=== PATIENT | male | born 1955 | race Caucasian/White ===

== ENCOUNTER → 2020-04-20 | Outpatient (CLI) | payer MEDICARE, SELFPAY ==
--- NOTE | 2020-04-20 10:34 | RAD_ITS ---
STUDY: X-RAY CHEST REASON FOR EXAM: Male, 64 years old. Weight loss TECHNIQUE: 2 PA and 2 lateral views COMPARISON: None. FINDINGS: Lungs are hyperexpanded with chronic interstitial changes, but no superimposed acute pulmonary process. There is no demonstrated pleural abnormality. Normal size heart. Normal mediastinum and brenda. Normal visualized pulmonary arteries. Normal visualized aortic arch and descending thoracic aorta. There are diffuse degenerative changes of the visualized thoracic spine. Normal visualized ribs, clavicles, and shoulders. There is no demonstrated abnormality of the visualized soft tissue structures of the upper abdomen. RAD/Chest PA and Lateral IMPRESSION: Hyperexpanded lungs without a superimposed acute pulmonary process Electronically Signed: Rogelio Holguin MD at 11:13 EDT , Service support ,
[2020-04-20 12:43] LABS: Absolute Lymphocyte Count 1.38 X10^3/uL (0.83-4.51); Basophil# 0.06 X10^3/uL; Eosinophil# 0.11 X10^3/uL; Eosinophils% 1.8 % (0-5); Hematocrit 51.9 % (40-54); Hemoglobin 16.7 g/dL (13.0-16.5); Lymphocyte # 1.38 X10^3/ul (4.0); Lymphocyte % 22.8 % (19-41); Mean Corp Hgb Conc 32.2 g/dL (32-36); Mean Corpuscular Volume 99.4 fL (80-94); Mean Platelet Vol. 11.9 fl (6.2-12.0); Monocyte# 0.45 X10^3/uL; Monocyte% 7.5 % (0-10); NRBC Flagged by Analyzer 0 % (0-5); Neutrophil # 4.02 X10^3/uL (2.7-7.7); Neutrophil % 66.6 % (47-70); Platelet Count 195 K/mm3 (150-450); RBC Distribution Width CV 13.4 % (11.6-14.6); RBC Distribution Width SD 49.3 fl (35.1-43.9); Red Blood Count 5.22 M/mm3 (4.6-6.2)
[2020-04-20 12:56] LABS: Erythrocyte Sedimentation Rate 4 mm/hr (0-20)
[2020-04-20 13:13] LABS: ALB/GLOB Ratio 0.9 RATIO (0.9-2.4); AST(SGOT) 14 U/L (15-37); Alanine Aminotransfer ALT/SGPT 22 U/L (16-61); Albumin, Serum 3.9 g/dL (3.2-5.0); Alkaline Phosphatase 59 U/L (45-117); Anion Gap 5 (5-15); BUN 16 mg/dL (7-18); BUN/Creat Ratio 16.3 RATIO (10-20); Calcium,Total 9.6 mg/dL (8.5-10.1); Chloride 100 mmol/L (98-107); Creatinine, Serum 0.98 mg/dL (0.70-1.30); EST Glomerular Filtration Rate 81 mL/min (>60); Est Glom Filt Rate - Afr Amer 98 mL/min (>60); Globulin 4.3 g/dL (2.2-4.2); Glucose 106 mg/dL (74-106); Protein, Total 8.2 g/dL (6.4-8.2); Sodium Level 136 mmol/L (136-145); Thyroid Stim Hormone (TSH) 0.73 uIU/mL (0.358-3.74)
== END | disposition home or self-care (01) ==
PROVIDERS: PCP Family Medicine; Referring Provider Family Medicine; Visit Provider Family Medicine
DX: R63.4 Abnormal weight loss (principal)
CPT/HCPCS: 36415; 71046; 80053; 84443; 85025; 85652

== ENCOUNTER → 2020-04-27 | Outpatient (CLI) | payer MEDICARE, SELFPAY ==
--- NOTE | 2020-04-27 07:49 | CT_ITS ---
STUDY: CT ABDOMEN WITH CONTRAST REASON FOR EXAM: Male, 64 years old. WEIGHT LOSS, HERNIA REPAIR RADIATION DOSAGE (If Supplied By Facility): CTDIvol = ( 12.61 ) mGy, DLP = ( 304.03 ) mGycm TECHNIQUE: Transaxial images were obtained post I.V. administration of Oral and amp;amp; IV Readi-CAT and amp;amp; 100mL Isovue-300, and with oral contrast. Sagittal and coronal images were reconstructed. Individualized dose optimization techniques were used for this CT. COMPARISON: None. FINDINGS: The visualized lung bases are unremarkable. The visualized portions of the heart are within normal limits. Normal liver. Normal gallbladder and extrahepatic biliary system. Normal spleen. Normal pancreas. Normal bilateral adrenal glands. Normal right kidney. Normal left kidney. Normal visualized stomach. Normal small intestine. There are scattered colonic diverticula consistent with diverticulosis. The appendix is visualized and appears normal. There is scattered atherosclerotic calcification of the abdominal aorta, without a demonstrated aneurysm. Normal inferior vena cava. Normal retroperitoneum. Normal abdominal wall. Minimal anterior listhesis of L4 on L5 without spondylolysis most likely secondary to facet joint osteoarthritis. Schmorl''s node involving the superior endplate of the L2 vertebrae. CT/Abdomen WITH IV Contrast IMPRESSION: No acute abnormality is seen. Electronically Signed: Scotty Levin, at 15:29 EDT , Service support ,
== END | disposition home or self-care (01) ==
LOC: CT 07:45
PROVIDERS: PCP Family Medicine; Referring Provider Family Medicine; Visit Provider Family Medicine
DX: R63.4 Abnormal weight loss (principal)
CPT/HCPCS: 74160; Q9967

== ENCOUNTER → 2020-06-02 12:06 | Outpatient (CLI) | payer MEDICARE, SELFPAY ==
[2016-02-27 21:18] VITALS: BMI 23.3
[2020-06-02 15:43] LABS: CRP < 2.90 mg/L (0.0-3.0)
[2020-06-04 16:08] LABS: Endomysial Antibody IgA Negative (Negative)
[2020-06-04 16:47] LABS: Immunoglobulin A 351 mg/dL (61-437); t-Transglutaminase IgA <2 U/mL (0-3)
== END ==
PROVIDERS: PCP Family Medicine; Referring Provider Internal Medicine Gastroenterology; Visit Provider Internal Medicine Gastroenterology
DX: R10.9 Unspecified abdominal pain (principal); R63.4 Abnormal weight loss
CPT/HCPCS: 36415; 82784; 83516; 86140; 86255

== ENCOUNTER → 2020-06-18 | Outpatient (CLI) | payer MEDICARE, SELFPAY ==
[2016-02-27 21:18] VITALS: BMI 23.3
--- NOTE | 2020-06-18 | IMM_PTH ---
PATIENT: AZIZA RODRIGUEZ LOC: [facility] U#:[id number] AGE/SX: 65/M ROOM: RE06/18/[address]: Dr. Fausto Neves MD : 1955 BED: DIS: 06/18/2020 SPEC #: [id number] RECD: 06/22/20 12:55 STATUS: VEROAN RERosario #: [id number] SANTIAGO: 06/18/20 00:[address]: Fausto Neves DEPT: IMMUNOHISTOCHEMISTRY RECD BY: Stacy Bueno ENTERED: 06/22/20 12:56 SP TYPE: IMMUNO OTHR DR: Dr. Milena Curry MD Tissues: B - Stomach, NOS Procedures: H Pylori (initial) PHYSICIAN & INSTITUTION [place] [id number] SPECIMEN INFORMATION: Tissue Source: B - Gastric antrum/body, biopsy Clinical Info: Weight loss Specimen Number: [id number] CPT code: 92389 METHODOLOGY: Deparaffinized sections of prefer/formalin-fixed tissue or PAP/DQ stained slides are incubated with monoclonal/polyclonal antibodies/oligonucleotide probes. Localization is made via biotin free immunoperoxidase method. Appropriate controls are performed and reacted as expected. Results on target cell population are indicated in the following table: RESULTS: ANTIBODY / CLONE RESULT Block B H Pylori (polyclonal) negative These tests were developed and their performance characteristics determined by [facility]. They may not have been cleared or approved by the U.S. Food and Drug Administration. The FDA has determined that such clearance or approval is not necessary. The above immunohistochemical/dualISH markers are ordered and reviewed by the Pathologist. INTERPRETATION: B. Gastric antrum/body, biopsy: Negative for Helicobacter pylori organisms. AM:taty 06/23/20
--- NOTE | 2020-06-18 12:34 | EGD_PTH ---
PATIENT: AZIZA RODRIGUEZ LOC: [facility] U#:[id number] AGE/SX: 65/M ROOM: RE06/18/[address]: Dr. Fausto Neves MD : 1955 BED: DIS: 06/18/2020 SPEC #: [id number] RECD: 06/20/20 15:05 STATUS: VERONA DANA #: [id number] SANTIAGO: 06/18/20 12:[address]: Fausto Neves DEPT: SURGICAL PATHOLOGY RECD BY: Moises Clark ENTERED: 06/21/20 07:46 SP TYPE: EGD BIOPSY MAIKEL DR: Dr. Milena Curry MD [facility] Tissues: A - Duodenum, NOS B - Gastric mucous membrane Procedures: Surgery Specimen Level IV HEADER OPERATION: EGD with biopsy PRE-OP DIAGNOSIS: Weight loss R63.4 TISSUE SUBMITTED: A - Garcia-duodenal biopsies, rule out celiac, Whipple's enteritis, B - Gastric biopsy, antrum/body, rule out gastritis MICROSCOPIC DIAGNOSIS A. Garcia-duodenal biopsies: Consistent with benign Matteo's gland hyperplasia. No evidence of enteritis. B. Gastric antrum/body, biopsy: Mild chronic gastritis. See comment. AM:taty 06/22/20 COMMENT B. The results of immunohistochemistry for Helicobacter pylori will be reported separately ([id number]). MICROSCOPIC DESCRIPTION Slides are reviewed. GROSS DESCRIPTION A - Received in fixative is one container labeled with the patient's name and designated duodenal biopsy. The specimen consists of one irregular fragment of light acosta soft tissue that measures 0.4 x 0.3 x 0.1 cm. The specimen is totally submitted in one cassette. B - Received in fixative is one container labeled with the patient's name and designated gastric antrum/body. The specimen consists of multiple irregular fragments of light acosta soft tissue that in aggregate measure 0.5 x 0.5 x 0.1 cm. The specimen is totally submitted in one cassette. / SJ:taty 06/21/20 TC:3 CPT: 17975 x2
== END | disposition home or self-care (01) ==
LOC: LABSPEC 15:20
PROVIDERS: PCP Family Medicine; Referring Provider Internal Medicine Gastroenterology; Visit Provider Internal Medicine Gastroenterology
DX: R63.4 Abnormal weight loss (principal)
CPT/HCPCS: 88305; 88342

== ENCOUNTER → 2020-10-20 09:19 | Outpatient (CLI) | payer MEDICARE, SELFPAY ==
[2020-10-11 10:17] VITALS: BMI 19.1
--- NOTE | 2020-10-20 15:10 | PFTCOMP ---
COMPLETE PULMONARY FUNCTION TEST INTERPRETATION Brief HPI: Patient is a 65 year old male, currently under the care of myself, who presents to [facility] for complete pulmonary function tests secondary to diagnosis of dyspnea. Respiratory therapist reports good effort and reproducible results. Interpretation: Forced expiration spirometry shows a very severe large airways obstructive ventilatory defect with an FEV1 of 35% predicted. There is a significant bronchodilator response in FVC by strict ATS criteria. Spirograms are of good quality and plateau slowly, indicating slowly emptying areas of the lungs. The respiratory flow volume loop shows decreased expiratory flow rates at all lung volumes consistent with airway obstruction. Lung volumes by body plethysmography show an elevated total lung capacity at 10.42 L, 153% predicted. FRC and RV are elevated out of proportion. Lung volume measurements are consistent with hyperinflation and air-trapping. Diffusion capacity by carbon monoxide is decreased at 68% predicted. The airway resistance is elevated. No previous pulmonary function tests were available for review. Impression: Partially reversible very severe large airways obstructive ventilatory defect resulting in air trapping with hyperinflation and a pattern consistent with severe COPD.
== END ==
PROVIDERS: PCP Family Medicine; Referring Provider Internal Medicine Critical Care Medicine; Visit Provider Internal Medicine Critical Care Medicine
DX: R06.02 Shortness of breath (principal)
CPT/HCPCS: 94060; 94726; 94729

== ENCOUNTER → 2020-10-28 10:19 | Outpatient (CLI) | payer MEDICARE, SELFPAY ==
[2020-10-11 10:17] VITALS: BMI 19.1
== END ==
PROVIDERS: PCP Family Medicine; Referring Provider Internal Medicine Critical Care Medicine; Visit Provider Internal Medicine Critical Care Medicine
DX: R06.02 Shortness of breath (principal)
CPT/HCPCS: 94762

== ENCOUNTER → 2020-11-10 12:08 | Outpatient (CLI) | payer MEDICARE, SELFPAY ==
[2020-10-11 10:17] VITALS: BMI 19.1
[2020-11-10 12:30] VITALS: PULSE 103; PULSE 104; PULSE 105; PULSE 110; PULSE 97; PULSE 99; O2SAT 90; O2SAT 91; O2SAT 92; O2SAT 93; O2SAT 94
--- NOTE | 2020-11-12 08:06 | PCM.PSN.6M ---
PSN 6 Minute Walk Test - 6 Minute Walk Test 6 Minute Walk Test: 6 Minute Walk Test PSN:6-Minute Walk Test Start: 11/10/20 12:50 Freq: Status: Active Protocol: RESP.6MINW Document 11/10/20 12:30 EW (Rec: 11/10/20 12:54 EW [id number]) 6 Minute Walk Test Date Performed 11/10/20 Time Performed 12:30 Height 5 ft 11 in Weight: 145 lb Weight in Pounds 145.[address]: Patrick Levin Assistive device used: None Pre-test Oxygen Delivery Method Room Air Pulse Ox (%) 93 Pulse Rate (60-100 beats/min) 97 Dyspnea Ady Scale (0-10) 0 Exertion Ady Scale (6-20) 6 1st minute Oxygen Delivery Method Room Air Pulse Ox (%) 92 Pulse Rate (60-100 beats/min) 103 H 2nd minute Oxygen Delivery Method Room Air Pulse Ox (%) 90 Pulse Rate (60-100 beats/min) 110 H 3rd minute Oxygen Delivery Method Room Air Pulse Ox (%) 90 Pulse Rate (60-100 beats/min) 104 H 4th minute Oxygen Delivery Method Room Air Pulse Ox (%) 91 Pulse Rate (60-100 beats/min) 99 5th minute Oxygen Delivery Method Room Air Pulse Ox (%) 90 Pulse Rate (60-100 beats/min) 105 H 6th minute Oxygen Delivery Method Room Air Pulse Ox (%) 90 Pulse Rate (60-100 beats/min) 105 H Post-test Oxygen Delivery Method Room Air Pulse Ox (%) 94 Pulse Rate (60-100 beats/min) 104 H Dyspnea Ady Scale (0-10) 2 Exertion Ady Scale (6-20) 11 Full Laps Walked 15 Partial Lap, Number of Tiles Walked 0 Total Distance Walked (ft) 885 - Interpretation Interpretation: The patient ambulated 885 feet over the course of 6 minutes beginning on room air without assistive devices or breaks. Pretesting oxygen saturation was noted to be 93% on room air. With ambulation, the juliane oxygen saturation was 90%. There was no significant exertional oxygen desaturation. - Recommendations Recommendations: There is no indication for the use of supplemental oxygen at this time.
== END ==
PROVIDERS: PCP Family Medicine; Referring Provider Internal Medicine Critical Care Medicine; Visit Provider Internal Medicine Critical Care Medicine
DX: R06.02 Shortness of breath (principal)
CPT/HCPCS: 94618

== ENCOUNTER → 2021-05-14 08:46 | Outpatient (CLI) | payer MEDICARE, SELFPAY ==
[2021-05-11 07:20] VITALS: BMI 21.4
--- NOTE | 2021-05-14 08:46 | CT_ITS ---
HISTORY: Screening exam. History of weight loss and COPD. EXAMINATION: CT Low Dose CT Chest for Lung Cancer Screening TECHNIQUE: Helically acquired images were obtained of the chest. Low-dose unenhanced chest CT imaging technique performed. Sagittal and coronal reformats reviewed. A radiation dose optimization technique was used for this scan. IV Contrast dosage and agent: None. COMPARISON: Contrast-enhanced CT abdomen and pelvis from 04/27/20 and 2 view chest x-ray from 04/20/20. FINDINGS: Hyperexpanded lungs with centrilobular and paraseptal emphysematous changes. Small benign calcified 8 mm nodule and separate tiny calcified granuloma within anterior left upper lobe. Noncalcified 7 mm nodule within medial right lower lobe abutting pleural surface. 4 mm noncalcified nodule within lateral segment right middle lobe. 4 mm subpleural nodule within anterolateral right lower lobe. 4 mm peripheral noncalcified nodule within lateral left lower lobe. There are several other scattered, punctate 2-3 mm nodules within bilateral lungs. No pulmonary edema, confluent airspace consolidation or discrete mass. No pneumothorax or pleural effusion. No pathologically enlarged mediastinal or hilar lymph nodes. Heart normal size. Mild atherosclerosis with no thoracic aortic aneurysm. No significant pericardial effusion. No acute findings within the imaged upper abdomen. No acute fracture or suspicious osseous lesion. CT/Low Dose CT Lung Screening IMPRESSION: Pulmonary emphysema with several noncalcified lung nodules and couple of benign calcified nodules. All nodules are possibly benign postinfectious etiology but dominant, noncalcified nodules (largest measuring 7 mm within right lower lobe) warrant follow-up imaging, as small pulmonary neoplasm not excluded. Per Antoni Society guidelines (see below), recommend follow-up imaging in 3-6 months, then again at 18-24 months. Updated 2017 Fleischner Society guidelines for follow-up and management of pulmonary nodules: Single nodule: In a low-risk patient: no routine follow up. In a high-risk patient: optional follow-up CT at 12 months Nodule size = 6-8 mm In a low-risk patient: CT at 6-12 months, then consider CT at 18-24 months In a high-risk patient: CT at 6-12 months, then CT at 18-24 months Nodule size > 8 mm All: consider CT at 3 months, PET/CT, or biopsy. Multiple nodules In a low-risk patient: no routine follow up. In a high-risk patient: optional follow-up CT at 12 months Nodule size = 6-8 mm In a low-risk patient: CT at 3-6 months, then, consider CT at 18-24 months. In a high-risk patient: CT at 3-6 months, then CT at 18-24 months . Nodule size > 8 mm In a low-risk patient: CT at 3-6 months, then, consider CT at 18-24 months. In a high-risk patient: CT at 3-6 months, then CT at 18-24 months . Low risk patients include individuals with minimal or absent history of smoking and other known risk factors. High risk patients include individuals with a history of smoking or other known risk factors. Individualized dose optimization techniques were used for this CT. at 0435 Reported and signed by: Dustin Magana MD Electronically Signed: Dustin Magana MD at 4:34 EDT Tel , Service support ,
== END ==
PROVIDERS: PCP Family Medicine; Referring Provider Internal Medicine Critical Care Medicine; Visit Provider Internal Medicine Critical Care Medicine
DX: F17.210 Nicotine dependence, cigarettes, uncomplicated (principal); Z12.2 Encounter for screening for malignant neoplasm of respiratory organs
CPT/HCPCS: 71271

== ENCOUNTER 2021-12-26 06:48 | Outpatient (CLI) | payer MEDICARE, SELFPAY ==
--- NOTE | 2021-12-26 10:51 | PFTCOMP_ITS ---
COMPLETE PULMONARY FUNCTION TEST INTERPRETATION Brief HPI: Patient is a 66 year old male, currently under the care of myself, who presents to [facility] for complete pulmonary function tests secondary to diagnosis of COPD/asthma overlap syndrome. Respiratory therapist reports good effort and reproducible results. Interpretation: Forced expiration spirometry shows a very severe large airways obstructive ventilatory defect with an FEV1 of 32% predicted. There is a significant bronchodilator response in FVC by strict ATS criteria. Spirograms are of good quality and plateau slowly, indicating slowly emptying areas of the lungs. The respiratory flow volume loop shows decreased expiratory flow rates at all lung volumes consistent with airway obstruction. Lung volumes by body plethysmography show a normal total lung capacity at 7.41 L, 106% predicted. FRC and RV are elevated out of proportion. Lung volume measurements are consistent with air-trapping. Diffusion capacity by carbon monoxide is decreased at 47% predicted. The airway resistance is elevated. Compared to previous pulmonary function tests from 10/20/2020, there has been significant worsening in lung volumes and DLCO. Impression: Partially reversible very severe large airways obstructive ventilatory defect, resulting in air trapping, and a significant reduction in diffusion capacity that appears to have worsened over the last 2 years.
== END 2021-12-26 23:59 | disposition home or self-care (01) ==
LOC: PSN 06:51
PROVIDERS: PCP Family Medicine; Referring Provider Nurse Practitioner Acute Care; Visit Provider Nurse Practitioner Acute Care
DX: J44.9 Chronic obstructive pulmonary disease, unspecified (principal)
CPT/HCPCS: 94060; 94726; 94729

== ENCOUNTER 2021-12-30 12:20 | Outpatient (CLI) | payer MEDICARE, SELFPAY ==
[2021-12-30 12:41] VITALS: PULSE 104; PULSE 105; PULSE 107; PULSE 108; PULSE 109; PULSE 93; O2SAT 91; O2SAT 92; O2SAT 93; O2SAT 94; O2SAT 95
--- NOTE | 2021-12-31 05:46 | PCM.PSN.6M ---
PSN 6 Minute Walk Test 6 Minute Walk Test 6 Minute Walk Test: 6 Minute Walk Test PSN:6-Minute Walk Test Start: 12/30/21 12:41 Freq: Status: Active Protocol: RESP.6MINW Document 12/30/21 12:41 CHARANJIT (Rec: 12/30/21 12:43 CHARANJIT [id number]) 6 Minute Walk Test Date Performed 12/30/21 Time Performed 12:30 Height 6 ft Weight: 72.575 kg Weight in Pounds 160.[address]: Munira Zimmer [employer] Assistive device used: None Pre-test Oxygen Delivery Method Room Air Pulse Ox (%) 94 Pulse Rate (60-100 beats/min) 104 H Dyspnea Ady Scale (0-10) 0 Exertion Ady Scale (6-20) 6 1st minute Oxygen Delivery Method Room Air Pulse Ox (%) 95 Pulse Rate (60-100 beats/min) 107 H 2nd minute Oxygen Delivery Method Room Air Pulse Ox (%) 92 Pulse Rate (60-100 beats/min) 107 H 3rd minute Oxygen Delivery Method Room Air Pulse Ox (%) 92 Pulse Rate (60-100 beats/min) 107 H 4th minute Oxygen Delivery Method Room Air Pulse Ox (%) 92 Pulse Rate (60-100 beats/min) 105 H 5th minute Oxygen Delivery Method Room Air Pulse Ox (%) 91 Pulse Rate (60-100 beats/min) 108 H 6th minute Oxygen Delivery Method Room Air Pulse Ox (%) 93 Pulse Rate (60-100 beats/min) 109 H Dyspnea Ady Scale (0-10) 3 Exertion Ady Scale (6-20) 12 Post-test Oxygen Delivery Method Room Air Pulse Ox (%) 95 Pulse Rate (60-100 beats/min) 93 Full Laps Walked 20 Partial Lap, Number of Tiles Walked 10 Total Distance Walked (ft) 1190 Interpretation Interpretation: Patient was able to ambulate 1190 feet over the course of 6 minutes on room air with no assistive devices or breaks. The patient did experience significant desaturation from a baseline of 94% to as low as 91%. Patient also had persistent tachycardia throughout testing with a peak heart rate of 109 bpm. These findings are consistent with a respiratory limitation exercise tolerance. Recommendations Recommendations: No supplemental oxygen is indicated at this time. However, patient will need to be followed closely given level of desaturation.
== END 2021-12-30 23:59 | disposition home or self-care (01) ==
LOC: PSN 12:21
PROVIDERS: PCP Family Medicine; Referring Provider Nurse Practitioner Acute Care; Visit Provider Nurse Practitioner Acute Care
DX: J44.9 Chronic obstructive pulmonary disease, unspecified (principal)
CPT/HCPCS: 94618

== ENCOUNTER → 2022-05-29 | Outpatient (CLI) | payer MEDICARE, SELFPAY ==
--- NOTE | 2022-05-29 08:36 | CT_ITS ---
STUDY: LOW DOSE CT LUNG CANCER SCREENING REASON FOR EXAM: Male, 66 years old. 1 pack per day smoker x40 years, current smoker RADIATION DOSAGE (If Supplied By Facility): CTDIvol = ( 3.02 ) mGy, DLP = ( 124.55 ) mGycm TECHNIQUE: No contrast was administered. Low dose technique was utilized (average mAS-38 and kVp 120). 1.25 mm axial source images with a slice interval of 1.25-mm were reconstructed in lung windows. 2.5 mm axial source images with a slice interval of 2.5-mm were reconstructed in lung windows. 5.0 mm axial source images with a slice interval of 5.0-mm were reconstructed in soft tissue windows. COMPARISON: 05/14/2021 NODULES: Lung windows show significant and essentially unchanged emphysematous changes in both lung quiroz, both centrilobular and paraseptal. Stable nonspecific pleural thickening in both apices in both hemithoraces. Stable calcified granulomas in the upper lobes. There is a new suspicious spiculated 1.2 cm noncalcified nodule in the lateral left upper lobe on axial image 113. This needs further evaluation with biopsy or PET/CT study. There is also some concerning new architectural distortion in the right upper lobe on axial image 65 but there is no discrete nodule identified. No organized infiltrate, stable noncalcified nodules in the right lower lobe on axial image 170 measuring 3 and 5 mm. Soft tissue windows show normal-appearing thyroid gland. No suspicious adenopathy. There are calcified coronary vessels. No pleural or pericardial effusions. Bony structures show degenerative change, Limited cuts through the upper abdomen do not show a suspicious abnormality CT/Low Dose CT Lung Screening IMPRESSION: Lung-RADS category 4B - Chest CT with or without contrast, PET/CT and/or tissue sampling can be obtained depending on the probability of malignancy and comorbidities. IMPORTANT NOTES FOR USE: ACR Lung-RADS Version 1.1 Assessment Categories Release Date: 2018 Category: Coded 0-4 bases on nodule(s) with highest degree of suspicion. Negative screen is defined as categories 1 and 2; a positive screen is defined as categories 3 and 4. Category 3 and 4A nodules that are unchanged on interval CT should be coded as category 2, and individuals returned to screening in 12 months. Category 4X: Category 3 or 4 nodules with additional imaging findings that increase the suspicion of lung cancer, such as spiculation, GGN that doubles in size in 1 year, enlarged lymph notes, etc. Category Modifiers: S (significant finding unrelated to lung cancer) Electronically Signed: Rogelio Holguin MD at 11:05 EDT ,
== END | disposition home or self-care (01) ==
LOC: CT 08:05
PROVIDERS: PCP Family Medicine; Referring Provider Internal Medicine; Visit Provider Nurse Practitioner Acute Care
DX: Z87.891 Personal history of nicotine dependence (principal)
CPT/HCPCS: 71271

== ENCOUNTER → 2022-08-30 | Outpatient (CLI) | payer MEDICARE, SELFPAY ==
--- NOTE | 2022-08-30 08:19 | CT_ITS ---
STUDY: CT CHEST WITHOUT CONTRAST REASON FOR EXAM: Male, 67 years old. Follow lung mass RADIATION DOSAGE (If Supplied By Facility): CTDIvol = ( 8.42 ) mGy, DLP = ( 372.53 ) mGycm TECHNIQUE: Transaxial imaging was performed without the administration of intravenous contrast material. Multiplanar coronal and sagittal images were reformatted. Individualized dose optimization techniques were used for this CT. COMPARISON: Comparison is made with prior study dated 05/29/2022. FINDINGS: CHEST Calcified granuloma in the left upper lobe. Emphysematous changes with centrilobular emphysema in the upper lobes. The previously seen nodular density in the peripheral lateral aspect of the left upper lobe has decreased in size. It presently measures 7.8 mm. There is no demonstrated pleural abnormality. There are calcifications of the coronary arteries. Normal mediastinum. Calcified left hilar lymph nodes. Normal unenhanced pulmonary arteries. There is atherosclerotic calcification of the aortic arch with tortuosity and elongation of the aortic arch and descending thoracic aorta. There are multi-level degenerative changes of the thoracic spine. Calcified splenic granulomas. CT/Chest without Contrast IMPRESSION: Interval decrease in size of the previously seen nodular density in the posterior aspect of the left upper lobe. It presently measures 7.8 mm. The remainder of the examination is unchanged. Electronically Signed: Scotty Levin MD at 14:03 EDT ,
== END | disposition home or self-care (01) ==
PROVIDERS: PCP Family Medicine; Referring Provider Nurse Practitioner Acute Care; Visit Provider Nurse Practitioner Acute Care
DX: R91.8 Other nonspecific abnormal finding of lung field (principal)
CPT/HCPCS: 71250

== ENCOUNTER → 2023-03-12 | Outpatient (CLI) | payer MEDICARE, SELFPAY ==
--- NOTE | 2023-03-12 09:54 | RAD_ITS ---
INDICATION: COPD EXAMINATION/TECHNIQUE: X-RAY - XR Chest 2 Views COMPARISON: April 20, 2020. FINDINGS: LINES/DEVICES: None. LUNGS: Moderate over aeration consistent with COPD. No consolidation, edema or effusion. No pneumothorax. MEDIASTINUM AND CARDIOVASCULAR STRUCTURES: Cardiac silhouette not enlarged. Central airways and mediastinal contour are unremarkable. BONES AND SOFT TISSUES: Unremarkable. Stable exam. RAD/Chest PA and Lateral IMPRESSION: Moderate COPD. Electronically Signed: Dustin Saba MD, LUIS ALBERTO at 18:44 EDT ,
== END | disposition home or self-care (01) ==
LOC: MTRAD 09:52
PROVIDERS: PCP Family Medicine; Referring Provider Family Medicine; Visit Provider Family Medicine
DX: J44.9 Chronic obstructive pulmonary disease, unspecified (principal)
CPT/HCPCS: 71046

== ENCOUNTER 2024-12-05 10:11 | Outpatient (CLI) | payer MEDICARE, SELFPAY ==
[2024-12-05 12:41] LABS: Anion Gap 5 (5-15); BUN 14 mg/dL (7-18); BUN/Creat Ratio 13.2 RATIO (10-20); Calcium,Total 9.5 mg/dL (8.5-10.1); Chloride 102 mmol/L (98-107); Cholesterol 208 mg/dL (200); Creatinine, Serum 1.06 mg/dL (0.70-1.30); EST Glomerular Filtration Rate 73 mL/min (>60); Est Glom Filt Rate - Afr Amer 89 mL/min (>60); Glucose 102 mg/dL (74-106); High Density Lipoprotein 57 mg/dL; Potassium 4.6 mmol/L (3.5-5.1); Sodium Level 137 mmol/L (136-145); Triglycerides 79 mg/dL; Very Low Density Lipoprotein 16 mg/dL (5-40)
== END 2024-12-05 23:59 | disposition home or self-care (01) ==
LOC: MFPLAB 10:12
PROVIDERS: PCP Family Medicine; Referring Provider Family Medicine; Visit Provider Family Medicine
DX: Z13.1 Encounter for screening for diabetes mellitus (principal); Z13.220 Encounter for screening for lipoid disorders; E78.00 Pure hypercholesterolemia, unspecified
CPT/HCPCS: 36415; 80048; 80061

== ENCOUNTER → 2025-08-24 | Outpatient (CLI) | payer MEDICARE, SELFPAY ==
[2025-08-24 12:27] LABS: Color, Urine Yellow (Yellow); Glucose, Dipstick Normal (Normal); Ketone-Dipstick 5 mg/dl (Negative); Leukocyte Esterase-Dipstick Negative /ul (Negative); Nitrite-Dipstick Negative (Negative); Occult Blood-Urine 10 /ul (Negative); Protein-Dipstick 30 mg/dl (Negative); Specific Gravity, Urine 1.025 (1.002-1.030); Urine Bilirubin Dipstick Negative (Negative)
== END | disposition home or self-care (01) ==
PROVIDERS: PCP Family Medicine; Referring Provider Family Medicine; Visit Provider Family Medicine
DX: R35.0 Frequency of micturition (principal)
CPT/HCPCS: 81002; 87086

== ENCOUNTER → 2025-08-28 | Outpatient (CLI) | payer MEDICARE, SELFPAY ==
[2025-08-28 12:57] LABS: Mucous, Urine 0 SEEN /hpf (<or=2+); Red Blood Cells-Urine 0 SEEN /hpf (0-5); Squamous Epithelial Cells - UA 0 SEEN /hpf (0-5)
[2025-08-28 15:08] LABS: Color, Urine Yellow (Yellow); Glucose, Dipstick Normal (Normal); Ketone-Dipstick 15 mg/dl (Negative); Leukocyte Esterase-Dipstick Negative /ul (Negative); Nitrite-Dipstick Negative (Negative); Occult Blood-Urine 10 /ul (Negative); Protein-Dipstick 30 mg/dl (Negative); Specific Gravity, Urine 1.025 (1.002-1.030); Urine Bilirubin Dipstick Negative (Negative)
== END | disposition home or self-care (01) ==
LOC: MTLAB 12:39
PROVIDERS: PCP Family Medicine; Referring Provider Family Medicine; Visit Provider Family Medicine
DX: R35.0 Frequency of micturition (principal)
CPT/HCPCS: 81001

== ENCOUNTER 2025-09-08 09:13 | Inpatient (IN) | payer MEDICARE, SELFPAY ==
[2025-09-08] VITALS (9 sets, daily range): BP systolic 119–163; BP diastolic 69–91; PULSE 100–116; RESP 18–25; TEMP 36.3–37.3; O2SAT 93–97; BMI 20.5
--- NOTE | 2025-09-08 09:24 | EKG12_ITS ---
Test Reason : ABD PAIN Blood Pressure : */* mmHG Vent. Rate : 99 BPM Atrial Rate : 99 BPM P-R Int : 204 ms QRS Dur : 84 ms QT Int : 338 ms P-R-T Axes : 80 103 70 degrees QTcB Int : 433 ms Normal sinus rhythm Rightward axis Pulmonary disease pattern Abnormal ECG Confirmed by Kiran Oleary ([id number]), publication editor JOY LEIVA ([id number]) on 09/09/2025 10:32:59 AM Referred By: Confirmed By: Kiran Oleary
[2025-09-08] MEDS: 0.9% Normal Saline (1000mL) 1,000 ML 999 ML IV ×4 (09:42→10:37)
--- NOTE | 2025-09-08 09:44 | CT_ITS ---
PROCEDURE: ABDOMEN/PELVIS WITH CONTRAST 09/08/2025 REASON FOR EXAM: CONCERN FOR DIVERTICULAR ABSCESS Left lower quadrant pain. TECHNIQUE: Procedure Code: [id number] Modality: CT Procedure: ABDOMEN/PELVIS WITH CONTRAST Coronal and Sagittal reconstruction series were provided. CONTRAST: Isovue-300 VOLUME: 100 mL One or more dose reduction techniques were used (e.g., Automated exposure control, adjustment of the mA and/or kV according to patient size, use of iterative reconstruction technique. RADIATION DOSE SUMMARY: CTDlvol: 11 mGy DLP: 609.37 mGycm COMPARISON: Prior study done earlier in the day. FINDINGS: Lung bases: The lung bases are clear. Coronary artery calcification. Liver: Borderline hepatomegaly. Gallbladder: Unremarkable. Spleen: Calcified splenic granulomas. Pancreas: Normal size without evidence of mass surrounding inflammation or ductal dilation. Adrenals: Unremarkable Kidneys: Tiny nonobstructive calculus in the upper pole calyx of the right kidney. Bladder: Unremarkable Central prostatic calcification. Bowel: Sigmoid diverticulosis. There is fullness of the sigmoid colon with findings suggestive of a 2 cm x 1.2 cm well encapsulated fluid collection along the anti mesenteric side of the sigmoid colon as seen on axial image number 75 and coronal image number 75. No free fluid is seen in the pelvis. A neoplastic process can not be excluded. Large amount of fecal material is seen in the colon especially in the right hemicolon and in the rectosigmoid colon. Appendix: The appendix is not identified. There is no inflammatory process identified in the right lower quadrant to suggest appendicitis. Lymph nodes: Unremarkable. Vasculature: Mild diffuse atherosclerotic calcifications are noted. Peritoneum / Retroperitoneum: Unremarkable Bones: Degenerative changes of the spine. CT/Abdomen/Pelvis WITH Contrast IMPRESSION: Findings suggestive of possible sigmoid diverticulitis with focal fluid collect ion along the anti mesenteric side of the sigmoid colon measuring 12 mm x 20 mm. Large amount of fecal material is seen in the colon. A neoplastic process can not be excluded. Correlation with endoscopy recommended. Reading Location: [id number]
[2025-09-08 09:45] LABS: Hematocrit 43.1 % (40-54); Hemoglobin 13.9 g/dL (13.0-16.5); Immature Granulocytes Count 0.080 X10^3/uL (0.0-0.0); Mean Corp Hgb Conc 32.3 g/dL (32-36); Mean Corpuscular Volume 90.5 fL (80-94); Mean Platelet Vol. 10.4 fl (6.2-12.0); NRBC Flagged by Analyzer 0 % (0-5); Platelet Count 442 K/mm3 (150-450); RBC Distribution Width CV 14.3 % (11.6-14.6); RBC Distribution Width SD 47.8 fl (35.1-43.9); Red Blood Count 4.76 M/mm3 (4.6-6.2); White Blood Count 14.8 K/mm3 (4.4-11.0)
[2025-09-08 09:54] LABS: Prothrombin Time (Protime)PT. 14.7 SECONDS (11.7-14.9)
[2025-09-08 09:55] LABS: Partial Thromboplast Time 34.6 Seconds (24.1-36.2)
--- NOTE | 2025-09-08 09:58 | EDS_ITS ---
HPI History of Present Illness Chief Complaint: Abd Pain Narrative Narrative: Patient is a 70-year-old male with past medical history of COPD who presents to the emergency department with a chief complaint of abdominal pain from the urologist office. He states that this been going on for the past few days he states that he had not been seen by his primary care physician was referred to a urologist who ultimately sent him here. He states he has been taking Tylenol and ibuprofen [id number] for pain control he states that he will get a few hours of pain relief however when this wears off he has significant pain. He states that he has been having chills and noted that he has been sweaty however he states that he is not sure if he had a fever or not. He states he has never had a colonoscopy in the past. [facility] Medical History Rib fracture COPD (chronic obstructive pulmonary disease) Weight loss Home Medications ?Medication ?Instructions ?Recorded ?Last Taken ?Type valacyclovir 500 mg tablet 500 mg PO DAILY PRN 3 Unknown History (Valtrex) fluticasone fur. 100 mcg-umeclid 1 inh inhalation QDAY #60 ea 05/26/25 Unknown Rx 62.5 mcg-vilant 25 mcg inhalat.powder (Trelegy Ellipta) albuterol sulfate 90 mcg/actuation 2 puff inhalation Q 4H PRN 08/24/25 Unknown Rx aerosol inhaler (Ventolin HFA) shortness of breath or wheezing #18 grams Allergy/AdvReac Type Severity Reaction Status Date / Time No Known Allergies Allergy Verified 09/08/25 09:13 Surgical History H/O hernia repair Social History Smoking Status: Current every day smoker tobacco type: cigarettes Tobacco: How many years used: 59 Smokeless tobacco user: chewing tobacco Electronic Cigarette Use: with nicotine second hand exposure: Yes ROS ROS ED ROS Narrative Constitutional: Complains of chills and sweating as noted above denies headache, lightheadedness Cardiovascular: Denies chest pain Respiratory: Denies coughing wheezing shortness of breath Abdomen: Complains abdominal pain as noted above : Complains of some painful urination Neurological: Denies numbness, weeks, tingling Musculoskeletal: Denies back pain Skin: Denies any rashes or lesions EXAM Physical Exam Narrative Exam Narrative: General: Patient was lying in bed rest comfortably did not appear to be in acute distress Head: Atraumatic, normocephalic Eyes: PERRL bilaterally, EOMI bilateral, no conjunctival injection noted Neck: Soft, supple, trachea midline Cardiovascular: Patient tachycardic with a regular rhythm Respiratory: Clear to auscultation bilaterally Abdomen: Soft, nondistended, diffuse tenderness palpation no rebound or guarding exam Extremities: +4/5 strength in the bilateral lower extremities Neurological: Patient follow commands and that he was at [facility] years 2024 Skin: Warm, dry, intact no rashes or lesions noted Const Vital Signs: 09/08/25 09:13 09/08/25 09:34 09/08/25 11:13 Temperature 97.5 F L Temperature Source Oral Pulse Rate 102 H 109 H Respiratory Rate 22 H 23 H Blood Pressure 152/89 H 127/91 H Blood Pressure Mean 110 103 Pulse Ox 97 96 95 Oxygen Delivery Method Room Air 09/08/25 12:24 Temperature Temperature Source Pulse Rate 116 H Respiratory Rate Blood Pressure Blood Pressure Mean Pulse Ox Oxygen Delivery Method MDM MDM MDM Narrative Medical decision making narrative: Patient is a 70-year-old male who presented to the emergency department the chief complaint of abdominal pain. On the differential diagnose includes but not limited to diverticulitis, UTI, pyelonephritis, diverticular abscess. Once workup is obtained and reviewed he will be reevaluated. Urologist Dr. Pearson called in and I had a conversation with him he states that his urinalysis was negative for infection and notes that he ordered an outpatient CT without contrast with a concern for a kidney stone however he states that after reviewing this he is concern for a diverticular abscess therefore he sent him here to be further evaluated. CBC reviewed and showed a leukocytosis of 14,000, hemoglobin 13.9, platelet count of 442. Patient INR normal at 1.1, PT 14.7. There sodium was 130, potassium was 5.2, creatinine of 0.88. Patient AST and ALT are 23 and 32 re spectively. Lipase normal at 13 urinalysis reviewed and the macroscopic shows negative nitrates negative leukocyte esterase have low suspicion for infection at this point in time. Patient CT abdomen pelvis with IV and oral contrast was reviewed and showed findings suggestive of possible sigmoid diverticulitis with focal fluid collection measuring 12 mm x 20 mm. Large amount of fecal material seen in the colon and neoplastic process cannot be excluded the recommending an endoscopy. Patient was given Zosyn at 1209. Reperfusion assessment was performed and patient remains normotensive to hyp ertensive no vasopressors indicated. Reached out to on-call general surgeon Dr. Wisdom who states the patient could be admitted to medicine service discussed also with gastroenterology. Will discuss case with hospitalist for admission. Lab Data Labs: Laboratory Results - last 24 hr 09/08/25 09/08/25 09:28 10:48 WBC 14.8 H RBC 4.76 Hgb 13.9 Hct 43.1 MCV 90.5 MCH 29.2 MCHC 32.3 RDW Std Deviation 47.8 H RDW Coeff of Isela 14.3 Plt Count 442 MPV 10.4 Immature Gran % (Auto) 0.500 Neut % (Auto) 81.2 H Lymph % (Auto) 9.7 L [place] % (Auto) 7.2 Eos % (Auto) 1.1 Baso % (Auto) 0.3 Absolute Neuts (auto) 12.0 H Absolute Lymphs (auto) 1.43 Nucleated RBC % 0 PT 14.7 INR 1.1 APTT 34.6 Sodium 138 Potassium 5.2 H Chloride 102 Carbon Dioxide 23.3 Anion Gap 13 BUN 26 H Creatinine 0.88 Estim Creat Clear Calc 73.90 Est GFR (MDRD) Non-Af 91 BUN/Creatinine Ratio 29.0 H Glucose 114 H Lactic Acid 1.6 Calcium 9.7 Total Bilirubin 0.30 AST 23 ALT 32 Alkaline Phosphatase 122 Total Protein 8.2 Albumin 3.7 Globulin 4.5 H Albumin/Globulin Ratio 0.8 L Lipase 13 Urine Color Yellow Urine Clarity Clear Urine pH 5.0 Ur Specific [place] 1.020 Urine Protein 15 H Urine Glucose (UA) Normal Urine Ketones Negative Urine Occult Blood 10 H Urine Nitrite Negative Urine Bilirubin Negative Urine Urobilinogen Normal Ur Leukocyte Esterase Negative Radiography Diagnostic Testing: Clinical Impression(s) from Imaging Studies Abdomen/Pelvis CT 09/08/25 09:44 IMPRESSION: Findings suggestive of possible sigmoid diverticulitis with focal fluid collection along the anti mesenteric side of the sigmoid colon measuring 12 mm x 20 mm. Large amount of fecal material is seen in the colon. A neoplastic process can not be excluded. Correlation with endoscopy recommended. Reading Location: [id number] Discharge Plan Triage Chief Complaint: Abd Pain ED Provider: Jayden Hector Dx/Rx/DC Orders Prescriptions: No Action valacyclovir [Valtrex] 500 mg tablet 500 mg PO DAILY PRN Trelegy Ellipta 100-62.5-25 mcg blister with device 1 inh INHALATION QDAY Qty: 60 11RF Rx Instructions: administer at approximately the same time(s) each day albuterol sulfate [Ventolin HFA] 90 mcg/actuation HFA aerosol inhaler 2 puff INHALATION Q4H PRN (Reason: shortness of breath or wheezing) Qty: 18 6RF Primary Care Provider: Kasie Pearce Referrals: Kasie Pearce MD [Primary Care Provider, Family Practice] Print Language: Syrian
[2025-09-08 10:26] LABS: AST(SGOT) 23 U/L (<=37); Alanine Aminotransfer ALT/SGPT 32 U/L (<=46); Albumin, Serum 3.7 g/dL (3.4-4.8); Alkaline Phosphatase 122 U/L (40-129); Anion Gap 13 (5-15); BUN 26 mg/dL (4-19); BUN/Creat Ratio 29.0 RATIO (10-20); Calcium,Total 9.7 mg/dL (7.6-11.0); Carbon Dioxide 23.3 mmol/L (21.0-32.0); Chloride 102 mmol/L (98-108); Estimated Creatinine Clearance 73.90 ml/min (50-250); Globulin 4.5 g/dL (2.2-4.2); Glucose 114 mg/dL (70-99); Lipase 13 U/L (13-75); Potassium 5.2 mmol/L (3.3-5.1)
[2025-09-08 10:52] LABS: Mucous, Urine 0 SEEN /hpf (<or=2+); Red Blood Cells-Urine 0 SEEN /hpf (0-5); Squamous Epithelial Cells - UA 0 SEEN /hpf (0-5)
[2025-09-08 10:56] LABS: Color, Urine Yellow (Yellow); Glucose, Dipstick Normal (Normal); Ketone-Dipstick Negative (Negative); Leukocyte Esterase-Dipstick Negative /ul (Negative); Nitrite-Dipstick Negative (Negative); Occult Blood-Urine 10 /ul (Negative); Protein-Dipstick 15 mg/dl (Negative); Specific Gravity, Urine 1.020 (1.002-1.030); Urine Bilirubin Dipstick Negative (Negative)
[2025-09-08] MEDS: Piperacil/Tazobactam 3.375 GM in 0.9% Normal Saline (50mL MB+) 50 ML IV ×2 (12:30→21:10)
--- NOTE | 2025-09-08 14:24 | EX.PCM.CON.S ---
Assessment & Plan Assessment/Plan (1) Diverticulitis of intestine with abscess: QUALIFIERS: Diverticulitis site: large intestine Diverticulitis bleeding: without bleeding Qualified Code(s): K57.20 - Diverticulitis of large intestine with perforation and abscess without bleeding (2) Weight loss: PLAN: Plan I have been consulted in conjunction with Dr. Wisdom. She will independently evaluate this patient. Patient is a 70 y/o M I am following for a 2 week history of lower pelvic/left lower quadrant pain and back pain. He has had a 10 pound weight loss, lack of appetite since the pain started. Patient is aware that the CT scan showed diverticulitis with a small abscess collection. It appears patient had a similar appearance of a thickened colon on a CT scan in 2019 without any fluid collection. Plan will be for patient to be admitted, NPO, IV fluids and IV antibiotics. Patient will need a colonoscopy at some point. No surgical intervention planned at this time. Discussed with patient that if his symptoms became worse or he was not improving, surgical intervention would be recommended. Patient is agreeable with holding off on any surgery at this time. Patient has had the opportunity to ask and have questions answered. Patient verbally understands and agrees with the proposed plan. Thank you for allowing us to participate in this patient's care. HPI Consult Data Date of Consult: 09/08/25 HPI Narrative Reason for Consultation: Diverticulitis with abscess HPI Narrative: AZIZA RODRIGUEZ, is a 70 M who presents with a 2 week history of progressively worsening left lower pelvic pain with associated low back pain. Patient notes this morning he had a fever. He notes his appetite has been decreased since the pain started. He states he has had approximately a 10 pound weight loss over the last 2 weeks. He notes he has been taking Tylenol 650 mg x 2 every 4 hours and Barer aspirin 325 mg x 2 every 4 hours for the pain. Patient states the first week of the pain he was taking pain medication every 8 hours and then the medication would wear off sooner and he would start taking it closer together. He notes a history of COPD and follows with Munira Zimmer. He denies any cardiac history. He does not follow with a collection teller. He was a very heavy smoker. he notes now he smokes 1-2 cigarettes per day unless he is stressed and then will smoke 5 or 6. He notes only previous abdominal surgery was a right inguinal hernia repair. He denies any previous history of diverticulitis. He has never had a colonoscopy previously. Patient notes due to the location of the pain, he thought this was urologically related and went to see Dr. Pearson today who sent the patient to the ED. Patient is a fruit or nut farmer. CT scan of ab/pel with contrast demonstrated: IMPRESSION: Findings suggestive of possible sigmoid diverticulitis with focal fluid collection along the anti mesenteric side of the sigmoid colon measuring 12 mm x 20 mm. Large amount of fecal material is seen in the colon. A neoplastic process can not be excluded. Correlation with endoscopy recommended. WBC 14.8 with a left shift. Potassium is increased 5.2. Urinalysis notable for protein and occult blood. [facility] Medical History Rib fracture COPD (chronic obstructive pulmonary disease) Weight loss Home Medications ?Medication ?Instructions ?Recorded ?Last Taken ?Type fluticasone fur. 100 mcg-umeclid 1 inh inhalation QDAY #60 ea 05/26/25 Unknown Rx 62.5 mcg-vilant 25 mcg inhalat.powder (Trelegy Ellipta) albuterol sulfate 90 mcg/actuation 2 puff inhalation Q4H PRN 08/24/25 Unknown Rx aerosol inhaler (Ventolin HFA) shortness of breath or wheezing #18 grams Allergy/AdvReac Type Severity Reaction Status Date / Time No Known Allergies Allergy Verified 09/08/25 09:13 Family History (Updated 09/08/25 @ 15:[address] Parmjit Mcmillan MD) Other Hypertension Surgical History H/O hernia repair Social History Smoking Status: Current every day smoker tobacco type: cigarettes Tobacco: How many years used: 59 Smokeless tobacco user: chewing tobacco Electronic Cigarette Use: with nicotine second hand exposure: Yes ROS Constitutional Constitutional: Reports systems reviewed and no addt'l complaints, except as documented Eyes Eyes: Reports systems reviewed and no addt'l complaints, except as documented ENT HEENT: Reports systems reviewed and no addt'l complaints, except as documented Cardiovascular Cardiovascular: Reports systems reviewed and no addt'l complaints, except as documented Respiratory/Chest Respiratory/Chest: Reports systems reviewed and no addt'l complaints, except as documented Gastrointestinal Gastrointestinal: Reports systems reviewed and no addt'l complaints, except as documented Genitourinary Genitourinary: Reports systems reviewed and no addt'l complaints, except as documented Musculoskeletal Musculoskeletal: Reports systems reviewed and no addt'l complaints, except as documented Integumentary Integumentary: Reports systems reviewed and no addt'l complaints, except as documented Neurologic Neurologic: Reports systems reviewed and no addt'l complaints, except as documented Psychiatric Psychiatric: Reports systems reviewed and no addt'l complaints, except as documented Endocrine Endocrinology: Reports systems reviewed and no addt'l complaints, except as documented Hematologic/Lymphatic Hematologic/Lymphatic: Reports systems reviewed and no addt'l complaints, except as documented Allergic/Immunologic Allergic/Immunologic: Reports systems reviewed and no addt'l complaints, except as documented Physical Exam Const alert and oriented x3 General Appearance: anxious HEENT normocephalic and head/scalp atraumatic Eyes PERRL Neck full ROM Resp Effort and Inspection: able to speak in complete sentences and pursed lip breathing Auscultation: diminished lung sounds bilateral lower Cardio regular rhythm Rate: tachycardic GI GI Narrative: Abdomen- soft, pain with palpation in mid pelvic area and left lower quadrant. Positive bowel sounds no CVA tenderness Back/Spine no CVA tenderness Extremity normal to inspection Skin no rashes or lesions noted Neuro no focal motor deficits and no sensory deficits noted Psych mental status grossly normal and cooperative Mood & Affect: anxious Lab / Micro Data 09/08/25 09:28 09/08/25 09:28 Labs: Laboratory Results - last 24 hr 09/08/25 09:28: WBC 14.8 H, RBC 4.76, Hgb 13.9, Hct 43.1, MCV 90.5, MCH 29.2, MCHC 32.3, RDW Std Deviation 47.8 H, RDW Coeff of Isela 14.3, Plt Count 442, MPV 10.4, Immature Gran % (Auto) 0.500, Neut % (Auto) 81.2 H, Lymph % (Auto) 9.7 L, [place] % (Auto) 7.2, Eos % (Auto) 1.1, Baso % (Auto) 0.3, Absolute Neuts (auto) 12.0 H, Absolute Lymphs (auto) 1.43, Nucleated RBC % 0, PT 14.7, INR 1.1, APTT 34.6, Sodium 138, Potassium 5.2 H, Chloride 102, Carbon Dioxide 23.3, Anion Gap 13, BUN 26 H, Creatinine 0.88, Estim Creat Clear Calc 73.90, Est GFR (MDRD) Non-Af 91, BUN/Creatinine Ratio 29.0 H, Glucose 114 H, Lactic Acid 1.6, Calcium 9.7, Total Bilirubin 0.30, AST 23, ALT 32, Alkaline Phosphatase 122, Total Protein 8.2, Albumin 3.7, Globulin 4.5 H, Albumin/Globulin Ratio 0.8 L, Lipase 13 09/08/25 10:48: Urine Color Yellow, Urine Clarity Clear, Urine pH 5.0, Ur Specific [place] 1.020, Urine Protein 15 H, Urine Glucose (UA) Normal, Urine Ketones Negative, Urine Occult Blood 10 H, Urine Nitrite Negative, Urine Bilirubin Negative, Urine Urobilinogen Normal, Ur Leukocyte Esterase Negative, Urine RBC 0 SEEN, Urine WBC 0 SEEN, Ur Squamous Epith Cells 0 SEEN, Urine Bacteria 0 SEEN, Urine Mucus 0 SEEN Imaging Radiology Impression Abdomen/Pelvis CT 09/08/25 09:44 IMPRESSION: Findings suggestive of possible sigmoid diverticulitis with focal fluid collection along the anti mesenteric side of the sigmoid colon measuring 12 mm x 20 mm. Large amount of fecal material is seen in the colon. A neoplastic process can not be excluded. Correlation with endoscopy recommended. Reading Location: [facility] Charges/Coding Visit Charges Inpatient E&M: 13397 Init Hosp L2
[2025-09-08] MEDS: 0.9% Normal Saline (1000mL) 1,000 ML 75 ML IV (15:16)
--- NOTE | 2025-09-08 15:16 | HP.PCM.HOS_ITS ---
HPI - General General Date of Admission: 09/08/25 HPI Narrative AZIZA RODRIGUEZ, is a 70 M who presents to the hospital for left lower quadrant abdominal pain that have been going on for the last several days. Initially he thought this was bladder pain or a bladder infection so he went to a urologist who sent him to the ER. CT scan of his abdomen pelvis demonstrates diverticulitis with contained abscess as well as findings concerning for possible colonic mass as he is never had a colonoscopy before. He is afebrile here in the emergency room and was started on Zosyn. White count is 14.8 and he is tachypneic and tachycardic consistent with sepsis based on Medicare criteria. He did receive 2 L of fluid in the emergency room and general surgery was consulted from the ER. Currently no plans for emergent surgery [facility] Medical History Rib fracture COPD (chronic obstructive pulmonary disease) Weight loss Home Medications ?Medication ?Instructions ?Recorded ?Last Taken ?Type fluticasone fur. 100 mcg-umeclid 1 inh inhalation QDAY #60 ea 05/26/25 Unknown Rx 62.5 mcg-vilant 25 mcg inhalat.powder (Trelegy Ellipta) albuterol sulfate 90 mcg/actuation 2 puff inhalation Q 4H PRN 08/24/25 Unknown Rx aerosol inhaler (Ventolin HFA) shortness of breath or wheezing #18 grams Allergy/AdvReac Type Severity Reaction Status Date / Time No Known Allergies Allergy Verified 09/08/25 09:13 Family History (Updated 09/08/25 @ 16:[address] Parmjit Mcmillan MD) Other Cancer Surgical History H/O hernia repair Social History Smoking Status: Current every day smoker tobacco type: cigarettes Tobacco: How many years used: 59 Smokeless tobacco user: chewing tobacco Electronic Cigarette Use: with nicotine second hand exposure: Yes ROS Constitutional Constitutional: Denies chills, fatigue, fever(s) or malaise Eyes Eyes: Denies blurry vision ENT HEENT: Denies headache(s) or nasal discharge Cardiovascular Cardiovascular: Denies chest pain, dyspnea on exertion or syncope Respiratory/Chest Respiratory/Chest: Denies cough, shortness of breath at rest or shortness of breath with exertion Gastrointestinal Gastrointestinal: Reports abdominal pain; Denies constipation, diarrhea, nausea or vomiting Genitourinary Genitourinary: Denies dysuria Neurologic Neurologic: Denies focal weakness, numbness or tremor(s) Psychiatric Psychiatric: Denies anxiety or depression Vital Signs Vital Signs Vital Signs: 09/08/25 09:13 09/08/25 09:34 09/08/25 11:13 Temperature 97.5 F L Temperature Source Oral Pulse Rate 102 H 109 H Respiratory Rate 22 H 23 H Blood Pressure 152/89 H 127/91 H Blood Pressure Mean 110 103 Pulse Ox 97 96 95 Oxygen Delivery Method Room Air 09/08/25 12:24 09/08/25 13:27 09/08/25 13:28 Temperature 97.9 F 97.9 F Temperature Source Oral Pulse Rate 116 H 106 H 109 H Respiratory Rate 20 H 25 H Blood Pressure 147/83 H 147/83 H Blood Pressure Mean 104 104 Pulse Ox 97 93 Oxygen Delivery Method Room Air 09/08/25 14:28 Temperature 97.9 F Temperature Source Oral Pulse Rate 106 H Respiratory Rate 22 H Blood Pressure 163/89 H Blood Pressure Mean 113 Pulse Ox 96 Oxygen Delivery Method Room Air Weight Weight: 151 lb 12.8 oz Body Mass Index (BMI) 20.5 Physical Exam Narrative General: Alert, Oriented x3, Cooperative, No apparent distress HEENT: Atraumatic, PERRLA, EOMI, Normocephalic Oral: Moist Mucosa Neck: Supple, No JVD Lungs: Diminished, Normal air movement, No rhonchi, No wheeze, No rales Cardiovascular: Tachycardic, Regular Rhythm, Normal S1, Normal S2, No murmurs Abdomen: Soft, TTP to LLQ, Non-Distended, No Hepato-splenomegaly Extremities: No edema, Capillary Refill Less than 3 Seconds Skin: No rashes, No breakdown Musculoskeletal: No Tenderness to Palpation of Joints or Extremities Neurological: No focal neurological deficits, moves all extremities Psych/Mental Status: Normal Affect, Appropriate Results Lab / Micro Data 09/08/25 09:28 09/08/25 09:28 Labs: Laboratory Results - last 24 hr 09/08/25 09:28: WBC 14.8 H, RBC 4.76, Hgb 13.9, Hct 43.1, MCV 90.5, MCH 29.2, MCHC 32.3, RDW Std Deviation 47.8 H, RDW Coeff of Isela 14.3, Plt Count 442, MPV 10.4, Immature Gran % (Auto) 0.500, Neut % (Auto) 81.2 H, Lymph % (Auto) 9.7 L, [place] % (Auto) 7.2, Eos % (Auto) 1.1, Baso % (Auto) 0.3, Absolute Neuts (auto) 12.0 H, Absolute Lymphs (auto) 1.43, Nucleated RBC % 0, PT 14.7, INR 1.1, APTT 34.6, Sodium 138, Potassium 5.2 H, Chloride 102, Carbon Dioxide 23.3, Anion Gap 13, BUN 26 H, Creatinine 0.88, Estim Creat Clear Calc 73.90, Est GFR (MDRD) Non- Af 91, BUN/Creatinine Ratio 29.0 H, Glucose 114 H, Lactic Acid 1.6, Calcium 9.7, Total Bilirubin 0.30, AST 23, ALT 32, Alkaline Phosphatase 122, Total Protein 8.2, Albumin 3.7, Globulin 4.5 H, Albumin/Globulin Ratio 0.8 L, Lipase 13 09/08/25 10:48: Urine Color Yellow, Urine Clarity Clear, Urine pH 5.0, Ur Specific [place] 1.020, Urine Protein 15 H, Urine Glucose (UA) Normal, Urine Ketones Negative, Urine Occult Blood 10 H, Urine Nitrite Negative, Urine Bilirubin Negative, Urine Urobilinogen Normal, Ur Leukocyte Esterase Negative, Urine RBC 0 SEEN, Urine WBC 0 SEEN, Ur Squamous Epith Cells 0 SEEN, Urine Bacteria 0 SEEN, Urine Mucus 0 SEEN Imaging Radiology Impression Abdomen/Pelvis CT 09/08/25 09:44 IMPRESSION: Findings suggestive of possible sigmoid diverticulitis with focal fluid collection along the anti mesenteric side of the sigmoid colon measuring 12 mm x 20 mm. Large amount of fecal material is seen in the colon. A neoplastic process can not be excluded. Correlation with endoscopy recommended. Reading Location: [id number] Assessment & Plan Assessment/Plan (1) Diverticulitis of intestine with abscess: QUALIFIERS: Diverticulitis bleeding: without bleeding D iverticulitis site: large intestine Qualified Code(s): K57.20 - Diverticulitis of large intestine with perforation and abscess without bleeding (2) Sepsis: PLAN: Plan 1. Sepsis secondary to diverticulitis with an abscess ? Continue with Zosyn ? Pain management ? N.p.o. ? IV fluids ? Consult general surgery ? Pending resolution or rapid improvement will need a colonoscopy or at the very least a sigmoidoscopy during this admission and/or close outpatient follow-up 2. COPD ? Not in exacerbation ? Continue with his home inhalers DVT: SCDs Charges/Coding Visit Charges Inpatient E&M: 13032 Init Hosp L2 D/C Safety Score for UGIB Assessment [place] Bleeding Score (GBS): Stratifies upper GI bleeding patients who are low-risk and candidates for outpatient management. Sex: Male Hemoglobin, BUN, Recent Vital Signs: Hgb 13.9 g/dL (13.0-16.5) 09/08/25 09:28 BUN 26 mg/dL (4-19) H 09/08/25 09:28 Pulse Rate 106 Blood Pressure 163/89 Total Risk Score: 3 Score Interpretation: Score of 0: A GBS of 0 is a ?Low Risk? GI bleed, and is highly sensitive (99.6% in a 2007 retrospective study) for predicting which patients did not require any ?medical intervention?: blood transfusion, endoscopy, or surgery. This was confirmed in a 2009 Lancet study where patients with a score of 0 were actually discharged and had no GI bleeding mortality at 6 month followup Score above 0: A GBS greater than zero suggests a ?High Risk? GI bleed that is likely to require ?medical intervention?: transfusion, endoscopy, or surgery. A higher GBS also correlated with a higher likelihood of needing intervention Scores >/= 6 are associated with >50% risk of needing intervention D/C Safety Score for LGIB Assessment Assessment Tool: Readmission and adverse event risk in patients with acute lower GI bleeding. Age, in years: >/= 70 Sex: Male Hemoglobin and Recent Vital Signs: Hgb 13.9 g/dL (13.0-16.5) 09/08/25 09:28 Pulse Rate 106 09/08/25 14:28 Blood Pressure 163/89 09/08/25 14:28 Probability of safe discharge: 98% Total Risk Score: 3 Score Interpretation: Probability Percentage of safe discharge (absence of rebleeding, blood transfusion, therapeutic intervention, 28 day readmission, or ) Score of 8 or below: Consider discharge, with appropriate precautions. Score of 9 or above: Discharge NOT recommended. Consider admission with further workup and resuscitation as necessary.
[2025-09-08] MEDS: 0.9% Saline Lock 10 ML Syringe IV (18:34)
[2025-09-09 00:06] VITALS: BP 128/71; PULSE 99; RESP 16; TEMP 36.9; O2SAT 98
[2025-09-09] MEDS: 0.9% Saline Lock 10 ML Syringe IV ×4 (04:21→21:54)
[2025-09-09] MEDS: 0.9% Normal Saline (1000mL) 1,000 ML 75 ML IV ×2 (04:53→21:58)
[2025-09-09 04:55] VITALS: BP 134/76; PULSE 101; RESP 18; TEMP 37; O2SAT 98
[2025-09-09] MEDS: Piperacil/Tazobactam 3.375 GM in 0.9% Normal Saline (50mL MB+) 50 ML IV ×3 (06:10→21:50)
[2025-09-09 07:31] LABS: Hematocrit 35.9 % (40-54); Hemoglobin 11.9 g/dL (13.0-16.5); Immature Granulocytes Count 0.030 X10^3/uL (0.0-0.0); Mean Corp Hgb Conc 33.1 g/dL (32-36); Mean Corpuscular Volume 91.1 fL (80-94); Mean Platelet Vol. 10.1 fl (6.2-12.0); NRBC Flagged by Analyzer 0 % (0-5); Platelet Count 349 K/mm3 (150-450); RBC Distribution Width CV 14.4 % (11.6-14.6); RBC Distribution Width SD 48.9 fl (35.1-43.9); Red Blood Count 3.94 M/mm3 (4.6-6.2); White Blood Count 10.2 K/mm3 (4.4-11.0)
[2025-09-09 07:52] LABS: Anion Gap 11 (5-15); BUN 12 mg/dL (4-19); BUN/Creat Ratio 16.1 RATIO (10-20); Calcium,Total 8.8 mg/dL (7.6-11.0); Carbon Dioxide 21.9 mmol/L (21.0-32.0); Chloride 104 mmol/L (98-108); Estimated Creatinine Clearance 81.29 ml/min (50-250); Glucose 131 mg/dL (70-99); Potassium 4.4 mmol/L (3.3-5.1)
[2025-09-09 07:58] VITALS: O2SAT 97
--- NOTE | 2025-09-09 08:06 | PN.SURG_ITS ---
Subjective Subjective Patient evaluated resting comfortably in bed. He notes at rest he has very little pain. He states when he gets up or uses the bathroom, he notes a moderate amount of pain. He denies any nausea, vomiting. He notes intermittently using oxygen at home which he purchased himself. He notes feeling thirsty today. Negative flatus or bowel movement. Objective Data Objective Data Vital Signs: Vital Signs Temp Pulse Resp BP Pulse Ox O2 Del Method O2 Flow Rate 98.6 F 101 H 18 134/76 H 97 Nasal Cannula 2 09/09/25 04:55 09/09/25 04:55 09/09/25 04:55 09/09/25 04:55 09/09/25 07:58 09/09/25 07:58 09/09/25 07:58 Oxygen Flow Rate (L/min) 2 Oxygen Delivery Method Nasal Cannula Weight: 151 lb 12.8 oz Body Mass Index (BMI) 20.5 Intake & Output: Intake and Output for Last 24 Hours 09/07/25 09/08/25 09/09/25 23:59 23:59 23:59 Intake Total 3550 / 3550 1050 / 1050 Balance 3550 / 3550 1050 / 1050 Lab / Micro Data 09/09/25 07:07 09/09/25 07:07 Labs: Laboratory Results - last 24 hr 09/08/25 09:28: WBC 14.8 H, RBC 4.76, Hgb 13.9, Hct 43.1, MCV 90.5, MCH 29.2, MCHC 32.3, RDW Std Deviation 47.8 H, RDW Coeff of Isela 14.3, Plt Count 442, MPV 10.4, Immature Gran % (Auto) 0.500, Neut % (Auto) 81.2 H, Lymph % (Auto) 9.7 L, [place] % (Auto) 7.2, Eos % (Auto) 1.1, Baso % (Auto) 0.3, Absolute Neuts (auto) 12.0 H, Absolute Lymphs (auto) 1.43, Nucleated RBC % 0, PT 14.7, INR 1.1, APTT 34.6, Sodium 138, Potassium 5.2 H, Chloride 102, Carbon Dioxide 23.3, Anion Gap 13, BUN 26 H, Creatinine 0.88, Estim Creat Clear Calc 73.90, Est GFR (MDRD) Non- Af 91, BUN/Creatinine Ratio 29.0 H, Glucose 114 H, Lactic Acid 1.6, Calcium 9.7, Total Bilirubin 0.30, AST 23, ALT 32, Alkaline Phosphatase 122, Total Protein 8.2, Albumin 3.7, Globulin 4.5 H, Albumin/Globulin Ratio 0.8 L, Lipase 13 09/08/25 10:48: Urine Color Yellow, Urine Clarity Clear, Urine pH 5.0, Ur Specific [place] 1.020, Urine Protein 15 H, Urine Glucose (UA) Normal, Urine Ketones Negative, Urine Occult Blood 10 H, Urine Nitrite Negative, Urine Bilirubin Negative, Urine Urobilinogen Normal, Ur Leukocyte Esterase Negative, Urine RBC 0 SEEN, Urine WBC 0 SEEN, Ur Squamous Epith Cells 0 SEEN, Urine Bacteria 0 SEEN, Urine Mucus 0 SEEN 09/09/25 07:07: WBC 10.2, RBC 3.94 L, Hgb 11.9 L, Hct 35.9 L, MCV 91.1, MCH 30.2, MCHC 33.1, RDW Std Deviation 48.9 H, RDW Coeff of Isela 14.4, Plt Count 349, MPV 10.1, Immature Gran % (Auto) 0.300, Neut % (Auto) 81.5 H, Lymph % (Auto) 9.1 L, [place] % (Auto) 7.9, Eos % (Auto) 0.8, Baso % (Auto) 0.4, Absolute Neuts (auto) 8.3 H, Absolute Lymphs (auto) 0.93, Nucleated RBC % 0, Sodium 137, Potassium 4.4, Chloride 104, Carbon Dioxide 21.9, Anion Gap 11, BUN 12, Creatinine 0.74, Estim Creat Clear Calc 81.29, Est GFR (MDRD) Non-Af 96, BUN/Creatinine Ratio 16.1, Glucose 131 H, Calcium 8.8 Radiography Diagnostic Testing: Radiology Impression Abdomen/Pelvis CT 09/08/25 09:44 IMPRESSION: Findings suggestive of possible sigmoid diverticulitis with focal fluid collection along the anti mesenteric side of the sigmoid colon measuring 12 mm x 20 mm. Large amount of fecal material is seen in the colon. A neoplastic process can not be excluded. Correlation with endoscopy recommended. Reading Location: [facility] Physical Exam GI GI Narrative: Abdomen- soft, slight tenderness in the mid pelvic/left lower quadrant region. Positive bowel sounds Assessment & Plan Assessment/Plan (1) Diverticulitis of intestine with abscess: QUALIFIERS: Diverticulitis site: large intestine Diverticulitis bleeding: without bleeding Qualified Code(s): K57.20 - Diverticulitis of large intestine with perforation and abscess without bleeding PLAN: I am following this patient in conjunction with Dr. Wisdom. I have discussed this patient with her. She will independently evaluate this patient. Labs reviewed. White count decreased Continue IV antibiotics Continue NPO with sips and chips at this time Encourage patient to be out of bed and ambulating Continue with pain management No surgical intervention planned at this time We will continue to monitor this patient Charges/Coding Visit Charges Inpatient E&M: 04062 Subs Hosp L2
[2025-09-09 08:50] VITALS: BP 134/70; PULSE 97; RESP 16; TEMP 36.8; O2SAT 98
--- NOTE | 2025-09-09 08:51 | PCM.PN.HOSP ---
Subjective Subjective Still had some pain overnight, remaining NPO. Objective Data Objective Data Vital Signs: Vital Signs Temp Pulse Resp BP Pulse Ox O2 Del Method O2 Flow Rate 98.6 F 101 H 18 134/76 H 97 Nasal Cannula 2 09/09/25 04:55 09/09/25 04:55 09/09/25 04:55 09/09/25 04:55 09/09/25 07:58 09/09/25 07:58 09/09/25 07:58 Oxygen Flow Rate (L/min) 2 Oxygen Delivery Method Nasal Cannula Weight: 151 lb 12.8 oz Body Mass Index (BMI) 20.5 Intake & Output: Intake and Output for Last 24 Hours 09/08/25 09/09/25 09/10/25 03:59 03:59 03:59 Intake Total 3600 / 3600 1000 / 1000 Balance 3600 / 3600 1000 / 1000 Lab / Micro Data 09/09/25 07:07 09/09/25 07:07 Labs: Laboratory Results - last 24 hr 09/08/25 09:28: WBC 14.8 H, RBC 4.76, Hgb 13.9, Hct 43.1, MCV 90.5, MCH 29.2, MCHC 32.3, RDW Std Deviation 47.8 H, RDW Coeff of Isela 14.3, Plt Count 442, MPV 10.4, Immature Gran % (Auto) 0.500, Neut % (Auto) 81.2 H, Lymph % (Auto) 9.7 L, [place] % (Auto) 7.2, Eos % (Auto) 1.1, Baso % (Auto) 0.3, Absolute Neuts (auto) 12.0 H, Absolute Lymphs (auto) 1.43, Nucleated RBC % 0, PT 14.7, INR 1.1, APTT 34.6, Sodium 138, Potassium 5.2 H, Chloride 102, Carbon Dioxide 23.3, Anion Gap 13, BUN 26 H, Creatinine 0.88, Estim Creat Clear Calc 73.90, Est GFR (MDRD) Non-Af 91, BUN/Creatinine Ratio 29.0 H, Glucose 114 H, Lactic Acid 1.6, Calcium 9.7, Total Bilirubin 0.30, AST 23, ALT 32, Alkaline Phosphatase 122, Total Protein 8.2, Albumin 3.7, Globulin 4.5 H, Albumin/Globulin Ratio 0.8 L, Lipase 13 09/08/25 10:48: Urine Color Yellow, Urine Clarity Clear, Urine pH 5.0, Ur Specific [place] 1.020, Urine Protein 15 H, Urine Glucose (UA) Normal, Urine Ketones Negative, Urine Occult Blood 10 H, Urine Nitrite Negative, Urine Bilirubin Negative, Urine Urobilinogen Normal, Ur Leukocyte Esterase Negative, Urine RBC 0 SEEN, Urine WBC 0 SEEN, Ur Squamous Epith Cells 0 SEEN, Urine Bacteria 0 SEEN, Urine Mucus 0 SEEN 09/09/25 07:07: WBC 10.2, RBC 3.94 L, Hgb 11.9 L, Hct 35.9 L, MCV 91.1, MCH 30.2, MCHC 33.1, RDW Std Deviation 48.9 H, RDW Coeff of Isela 14.4, Plt Count 349, MPV 10.1, Immature Gran % (Auto) 0.300, Neut % (Auto) 81.5 H, Lymph % (Auto) 9.1 L, [place] % (Auto) 7.9, Eos % (Auto) 0.8, Baso % (Auto) 0.4, Absolute Neuts (auto) 8.3 H, Absolute Lymphs (auto) 0.93, Nucleated RBC % 0, Sodium 137, Potassium 4.4, Chloride 104, Carbon Dioxide 21.9, Anion Gap 11, BUN 12, Creatinine 0.74, Estim Creat Clear Calc 81.29, Est GFR (MDRD) Non-Af 96, BUN/Creatinine Ratio 16.1, Glucose 131 H, Calcium 8.8 Radiography Diagnostic Testing: Radiology Impression Abdomen/Pelvis CT 09/08/25 09:44 IMPRESSION: Findings suggestive of possible sigmoid diverticulitis with focal fluid collection along the anti mesenteric side of the sigmoid colon measuring 12 mm x 20 mm. Large amount of fecal material is seen in the colon. A neoplastic process can not be excluded. Correlation with endoscopy recommended. Reading Location: [facility] Physical Exam Narrative General: Alert, Oriented x3, Cooperative, No apparent distress HEENT: Atraumatic, PERRLA, EOMI, Normocephalic Oral: Moist Mucosa Neck: Supple, No JVD Lungs: Diminished, Normal air movement, No rhonchi, No wheeze, No rales Cardiovascular: Tachycardic, Regular Rhythm, Normal S1, Normal S2, No murmurs Abdomen: Soft, TTP to LLQ, Non-Distended, No Hepato-splenomegaly Extremities: No edema, Capillary Refill Less than 3 Seconds Skin: No rashes, No breakdown Musculoskeletal: No Tenderness to Palpation of Joints or Extremities Neurological: No focal neurological deficits, moves all extremities Psych/Mental Status: Normal Affect, Appropriate Assessment & Plan Assessment/Plan (1) Diverticulitis of intestine with abscess: QUALIFIERS: Diverticulitis site: large intestine Diverticulitis bleeding: without bleeding Qualified Code(s): K57.20 - Diverticulitis of large intestine with perforation and abscess without bleeding (2) Sepsis: PLAN: Plan 1. Sepsis secondary to diverticulitis with an abscess ? Continue with Zosyn ? Pain management ? Continue with n.p.o. today ? IV fluids ? Consult general surgery ? Pending resolution or rapid improvement will need a colonoscopy or at the very least a sigmoidoscopy during this admission and/or close outpatient follow-up 2. COPD ? Not in exacerbation ? Continue with his home inhalers DVT: SCDs Charges/Coding Visit Charges Inpatient E&M: 43317 Subs Hosp L2
--- NOTE | 2025-09-09 10:06 | CASEMGMT ---
Addendum entered by Kaylen Mcdermott 09/09/25 10:59: RN CM into pt room to verify oxygen, see CM O2 verification. Pt denies any concerns regarding going [place] at [place] Original Note: Dx:diverticulitis LACE:1 6-Clicks:24 Medical record reviewed and patient evaluated for identification of discharge planning needs. Based on this review, at this time criteria are not present to indicate a need for discharge planning. Will remain available to assist with discharge planning needs as identified or requested.
[2025-09-09] MEDS: FLUTICASONE/UMECLIDIN/VILANTER 1 EACH BLST.W.DEV INHALATION (11:52)
[2025-09-09 15:12] VITALS: BP 127/83; PULSE 80; RESP 16; TEMP 36.7; O2SAT 96
[2025-09-09 19:59] VITALS: BP 131/77; PULSE 97; RESP 18; TEMP 36.7; O2SAT 98
[2025-09-10] MEDS: 0.9% Saline Lock 10 ML Syringe IV (00:47)
[2025-09-10 04:51] VITALS: BP 132/83; PULSE 101; RESP 19; TEMP 36.7; O2SAT 96
[2025-09-10] MEDS: Piperacil/Tazobactam 3.375 GM in 0.9% Normal Saline (50mL MB+) 50 ML IV ×3 (05:10→21:40)
[2025-09-10 06:30] LABS: Hematocrit 35.9 % (40-54); Hemoglobin 11.4 g/dL (13.0-16.5); Immature Granulocytes Count 0.060 X10^3/uL (0.0-0.0); Mean Corp Hgb Conc 31.8 g/dL (32-36); Mean Corpuscular Volume 93.0 fL (80-94); Mean Platelet Vol. 10.3 fl (6.2-12.0); NRBC Flagged by Analyzer 0 % (0-5); Platelet Count 356 K/mm3 (150-450); RBC Distribution Width CV 14.5 % (11.6-14.6); RBC Distribution Width SD 49.5 fl (35.1-43.9); Red Blood Count 3.86 M/mm3 (4.6-6.2); White Blood Count 10.4 K/mm3 (4.4-11.0)
[2025-09-10 06:56] LABS: Anion Gap 12 (5-15); BUN 9 mg/dL (4-19); BUN/Creat Ratio 12.4 RATIO (10-20); Calcium,Total 8.8 mg/dL (7.6-11.0); Carbon Dioxide 23.8 mmol/L (21.0-32.0); Chloride 100 mmol/L (98-108); Estimated Creatinine Clearance 81.29 ml/min (50-250); Glucose 86 mg/dL (70-99); Potassium 4.3 mmol/L (3.3-5.1)
--- NOTE | 2025-09-10 07:19 | PCM.PN.SRG ---
Subjective Subjective Patient evaluated resting comfortably in bed. He denies any nausea, vomiting. He notes pain with movement and using the bathroom. He states he had a little flatus. He notes a very small bowel movement. Objective Data Objective Data Vital Signs: Vital Signs Temp Pulse Resp BP Pulse Ox O2 Del Method O2 Flow Rate 98.1 F 101 H 19 H 132/83 H 96 Nasal Cannula 2 09/10/25 04:51 09/10/25 04:51 09/10/25 04:51 09/10/25 04:51 09/10/25 04:51 09/10/25 04:51 09/10/25 04:51 Oxygen Flow Rate (L/min) 2 Oxygen Delivery Method Nasal Cannula Weight: 151 lb 12.789 oz Body Mass Index (BMI) 20.5 Intake & Output: Intake and Output for Last 24 Hours 09/08/25 09/09/25 09/10/25 23:59 23:59 23:59 Intake Total 3550 / 3550 2200 / 2200 50 / 50 Balance 3550 / 3550 2200 / 2200 50 / 50 Lab / Micro Data 09/10/25 05:56 09/10/25 05:56 Labs: Laboratory Results - last 24 hr 09/09/25 07:07: WBC 10.2, RBC 3.94 L, Hgb 11.9 L, Hct 35.9 L, MCV 91.1, MCH 30.2, MCHC 33.1, RDW Std Deviation 48.9 H, RDW Coeff of Isela 14.4, Plt Count 349, MPV 10.1, Immature Gran % (Auto) 0.300, Neut % (Auto) 81.5 H, Lymph % (Auto) 9.1 L, [place] % (Auto) 7.9, Eos % (Auto) 0.8, Baso % (Auto) 0.4, Absolute Neuts (auto) 8.3 H, Absolute Lymphs (auto) 0.93, Nucleated RBC % 0, Sodium 137, Potassium 4.4, Chloride 104, Carbon Dioxide 21.9, Anion Gap 11, BUN 12, Creatinine 0.74, Estim Creat Clear Calc 81.29, Est GFR (MDRD) Non-Af 96, BUN/Creatinine Ratio 16.1, Glucose 131 H, Calcium 8.8 09/10/25 05:56: WBC 10.4, RBC 3.86 L, Hgb 11.4 L, Hct 35.9 L, MCV 93.0, MCH 29.5, MCHC 31.8 L, RDW Std Deviation 49.5 H, RDW Coeff of Isela 14.5, Plt Count 356, MPV 10.3, Immature Gran % (Auto) 0.600, Neut % (Auto) 78.8 H, Lymph % (Auto) 8.1 L, [place] % (Auto) 10.8 H, Eos % (Auto) 1.2, Baso % (Auto) 0.5, Absolute Neuts (auto) 8.2 H, Absolute Lymphs (auto) 0.84, Nucleated RBC % 0, Sodium 136, Potassium 4.3, Chloride 100, Carbon Dioxide 23.8, Anion Gap 12, BUN 9, Creatinine 0.77, Estim Creat Clear Calc 81.29, Est GFR (MDRD) Non-Af 95, BUN/Creatinine Ratio 12.4, Glucose 86, Calcium 8.8 Physical Exam GI GI Narrative: Abdomen- soft, tenderness in the mid pelvic region. Positive bowel sounds Assessment & Plan Assessment/Plan (1) Diverticulitis of intestine with abscess: QUALIFIERS: Diverticulitis site: large intestine Diverticulitis bleeding: without bleeding Qualified Code(s): K57.20 - Diverticulitis of large intestine with perforation and abscess without bleeding PLAN: I am following this patient in conjunction with Dr. Wisdom. She will independently evaluate this patient. Labs reviewed Continue IV antibiotics and switch over to Tylenol and Toradol for pain control Use narcotics sparingly Kpad ordered Encourage ambulation and I.S Continue NPO until pain free No surgical intervention planned at this time We will continue to monitor this patient Charges/Coding Visit Charges Inpatient E&M: 44844 Subs Hosp L2
[2025-09-10 08:00] VITALS: RESP 20
[2025-09-10 09:57] VITALS: BP 152/87; PULSE 98; RESP 18; TEMP 37.2; O2SAT 96
--- NOTE | 2025-09-10 10:12 | PCM.PN.HOSP ---
Subjective Subjective Still having some pain overnight will await surgical evaluation to determine initiating p.o. intake Objective Data Objective Data Vital Signs: Vital Signs Temp Pulse Resp BP Pulse Ox O2 Del Method O2 Flow Rate 99.0 F 98 18 152/87 H 96 Nasal Cannula 2 09/10/25 09:57 09/10/25 09:57 09/10/25 09:57 09/10/25 09:57 09/10/25 09:57 09/10/25 09:58 09/10/25 09:57 Oxygen Flow Rate (L/min) 2 Oxygen Delivery Method Nasal Cannula Weight: 151 lb 12.789 oz Body Mass Index (BMI) 20.5 Intake & Output: Intake and Output for Last 24 Hours 09/09/25 09/10/25 09/11/25 03:59 03:59 03:59 Intake Total 3600 / 3600 2200 / 2200 50 / 50 Balance 3600 / 3600 2200 / 2200 50 / 50 Lab / Micro Data 09/10/25 05:56 09/10/25 05:56 Labs: Laboratory Results - last 24 hr 09/10/25 05:56: WBC 10.4, RBC 3.86 L, Hgb 11.4 L, Hct 35.9 L, MCV 93.0, MCH 29.5, MCHC 31.8 L, RDW Std Deviation 49.5 H, RDW Coeff of Isela 14.5, Plt Count 356, MPV 10.3, Immature Gran % (Auto) 0.600, Neut % (Auto) 78.8 H, Lymph % (Auto) 8.1 L, [place] % (Auto) 10.8 H, Eos % (Auto) 1.2, Baso % (Auto) 0.5, Absolute Neuts (auto) 8.2 H, Absolute Lymphs (auto) 0.84, Nucleated RBC % 0, Sodium 136, Potassium 4.3, Chloride 100, Carbon Dioxide 23.8, Anion Gap 12, BUN 9, Creatinine 0.77, Estim Creat Clear Calc 81.29, Est GFR (MDRD) Non-Af 95, BUN/Creatinine Ratio 12.4, Glucose 86, Calcium 8.8 Micro: Microbiology 09/08/25 09:37 Blood Culture (Wb) - Anticubital Right Blood Culture - Preliminary No growth in 48 hours. 09/08/25 09:32 Blood Culture (Wb) - Anticubital Left Blood Culture - Preliminary No growth in 48 hours. Physical Exam Narrative General: Alert, Oriented x3, Cooperative, No apparent distress HEENT: Atraumatic, PERRLA, EOMI, Normocephalic Oral: Moist Mucosa Neck: Supple, No JVD Lungs: Diminished, Normal air movement, No rhonchi, No wheeze, No rales Cardiovascular: Tachycardic, Regular Rhythm, Normal S1, Normal S2, No murmurs Abdomen: Soft, TTP to LLQ, Non-Distended, No Hepato-splenomegaly Extremities: No edema, Capillary Refill Less than 3 Seconds Skin: No rashes, No breakdown Musculoskeletal: No Tenderness to Palpation of Joints or Extremities Neurological: No focal neurological deficits, moves all extremities Psych/Mental Status: Normal Affect, Appropriate Assessment & Plan Assessment/Plan (1) Diverticulitis of intestine with abscess: QUALIFIERS: Diverticulitis site: large intestine Diverticulitis bleeding: without bleeding Qualified Code(s): K57.20 - Diverticulitis of large intestine with perforation and abscess without bleeding (2) Sepsis: PLAN: Plan 1. Sepsis secondary to diverticulitis with an abscess ? Continue with Zosyn ? Pain management ? Continue with n.p.o. today ? IV fluids ? Consult general surgery ? Pending resolution or rapid improvement will need a colonoscopy or at the very least a sigmoidoscopy during this admission and/or close outpatient follow-up 2. COPD ? Not in exacerbation ? Continue with his home inhalers DVT: SCDs Charges/Coding Visit Charges Inpatient E&M: 87212 Subs Hosp L2
[2025-09-10] MEDS: FLUTICASONE/UMECLIDIN/VILANTER 1 EACH BLST.W.DEV INHALATION (12:13)
[2025-09-10 16:00] VITALS: RESP 20
[2025-09-10 17:00] VITALS: BP 113/71; PULSE 81; RESP 18; TEMP 36.8; O2SAT 96
[2025-09-10] MEDS: 0.9% Normal Saline (1000mL) 1,000 ML 75 ML IV (17:42)
[2025-09-11 03:57] VITALS: BP 136/73; PULSE 85; RESP 15; TEMP 36.5; O2SAT 97
[2025-09-11] MEDS: Piperacil/Tazobactam 3.375 GM in 0.9% Normal Saline (50mL MB+) 50 ML IV ×3 (06:16→22:07)
--- NOTE | 2025-09-11 07:46 | PN.SURG_ITS ---
Subjective Subjective Patient still complains of some abdominal pain?more so diffuse?controlled with pain meds patient denies bowel movements Objective Data Objective Data Vital Signs: Vital Signs Temp Pulse Resp BP Pulse Ox O2 Del Method O2 Flow Rate 97.7 F L 85 15 136/73 H 97 Room Air 2 09/11/25 03:57 09/11/25 03:57 09/11/25 03:57 09/11/25 03:57 09/11/25 03:57 09/11/25 06:00 09/11/25 05:18 Oxygen Flow Rate (L/min) 2 Oxygen Delivery Method Room Air Weight: 151 lb 12.789 oz Body Mass Index (BMI) 20.5 Intake & Output: Intake and Output for Last 24 Hours 09/09/25 09/10/25 09/11/25 23:59 23:59 23:59 Intake Total 2200 / 2200 1500 / 1500 50 / 50 Balance 2200 / 2200 1500 / 1500 50 / 50 Lab / Micro Data 09/10/25 05:56 09/10/25 05:56 Micro: Microbiology 09/08/25 10:48 Urine, Clean Catch Urine Culture - Final Culture exhibits no growth. 09/08/25 09:37 Blood Culture (Wb) - Anticubital Right Blood Culture - Preliminary No growth in 48 hours. 09/08/25 09:32 Blood Culture (Wb) - Anticubital Left Blood Culture - Preliminary No growth in 48 hours. Physical Exam Const oriented x3 and no apparent distress Resp normal respiratory effort Cardio regular rate GI soft to palpation GI Narrative: Tender mildly diffuse no peritoneal signs Assessment & Plan Assessment/Plan (1) Diverticulitis of intestine with abscess: QUALIFIERS: Diverticulitis site: large intestine Diverticulitis bleeding: without bleeding Qualified Code(s): K57.20 - Diverticulitis of large intestine with perforation and abscess without bleeding PLAN: Continue n.p.o.?likely plan for CT abdomen pelvis with p.o. and IV contrast tomorrow Continue IV antibiotics and switch over to Tylenol and Toradol for pain control Kpad ordered Encourage ambulation and I.S No surgical intervention planned at this time Michelle Wisdom M.D. Pager: [phone] [facility] [address] [place] [address], Outpatient [place], [address] [place] [id number] Office: [phone]
[2025-09-11 07:52] VITALS: O2SAT 98
--- NOTE | 2025-09-11 08:14 | CPS ---
Pt. was on 2L NC, decreased down to 1L saturating 98%
--- NOTE | 2025-09-11 08:18 | PCM.PN.HOSP ---
Subjective Subjective Overnight had pain at around 3, may be able to advance diet at discretion of general surgery Objective Data Objective Data Vital Signs: Vital Signs Temp Pulse Resp BP Pulse Ox O2 Del Method O2 Flow Rate 97.7 F L 85 15 136/73 H 98 Nasal Cannula 1 09/11/25 03:57 09/11/25 03:57 09/11/25 03:57 09/11/25 03:57 09/11/25 07:52 09/11/25 07:52 09/11/25 07:52 Oxygen Flow Rate (L/min) 1 Oxygen Delivery Method Nasal Cannula Weight: 151 lb 12.789 oz Body Mass Index (BMI) 20.5 Intake & Output: Intake and Output for Last 24 Hours 09/10/25 09/11/25 09/12/25 03:59 03:59 03:59 Intake Total 2200 / 2200 1500 / 1500 Balance 2200 / 2200 1500 / 1500 Lab / Micro Data 09/10/25 05:56 09/10/25 05:56 Micro: Microbiology 09/08/25 10:48 Urine, Clean Catch Urine Culture - Final Culture exhibits no growth. 09/08/25 09:37 Blood Culture (Wb) - Anticubital Right Blood Culture - Preliminary No growth in 48 hours. 09/08/25 09:32 Blood Culture (Wb) - Anticubital Left Blood Culture - Preliminary No growth in 48 hours. Physical Exam Narrative General: Alert, Oriented x3, Cooperative, No apparent distress HEENT: Atraumatic, PERRLA, EOMI, Normocephalic Oral: Moist Mucosa Neck: Supple, No JVD Lungs: Diminished, Normal air movement, No rhonchi, No wheeze, No rales Cardiovascular: Regular rate, Regular Rhythm, Normal S1, Normal S2, No murmurs Abdomen: Soft, mildly TTP to LLQ, Non-Distended, No Hepato-splenomegaly Extremities: No edema, Capillary Refill Less than 3 Seconds Skin: No rashes, No breakdown Musculoskeletal: No Tenderness to Palpation of Joints or Extremities Neurological: No focal neurological deficits, moves all extremities Psych/Mental Status: Normal Affect, Appropriate Assessment & Plan Assessment/Plan (1) Diverticulitis of intestine with abscess: QUALIFIERS: Diverticulitis site: large intestine Diverticulitis bleeding: without bleeding Qualified Code(s): K57.20 - Diverticulitis of large intestine with perforation and abscess without bleeding (2) Sepsis: PLAN: Plan 1. Sepsis secondary to diverticulitis with an abscess ? Continue with Zosyn ? Pain management ? Continue with n.p.o. today pending evaluation by general surgery ? IV fluids ? Consult general surgery ? Pending resolution or rapid improvement will need a colonoscopy or at the very least a sigmoidoscopy during this admission and/or close outpatient follow-up 2. COPD ? Not in exacerbation ? Continue with his home inhalers DVT: SCDs Charges/Coding Visit Charges Inpatient E&M: 84072 Subs Hosp L2
[2025-09-11] MEDS: 0.9% Normal Saline (1000mL) 1,000 ML 75 ML IV ×2 (08:24→22:08)
[2025-09-11 08:31] LABS: Hematocrit 34.7 % (40-54); Hemoglobin 11.1 g/dL (13.0-16.5); Immature Granulocytes Count 0.030 X10^3/uL (0.0-0.0); Mean Corp Hgb Conc 32.0 g/dL (32-36); Mean Corpuscular Volume 92.3 fL (80-94); Mean Platelet Vol. 9.7 fl (6.2-12.0); NRBC Flagged by Analyzer 0 % (0-5); Platelet Count 324 K/mm3 (150-450); RBC Distribution Width CV 14.3 % (11.6-14.6); RBC Distribution Width SD 48.5 fl (35.1-43.9); Red Blood Count 3.76 M/mm3 (4.6-6.2); White Blood Count 7.3 K/mm3 (4.4-11.0)
[2025-09-11 09:01] LABS: Anion Gap 10 (5-15); BUN 9 mg/dL (4-19); BUN/Creat Ratio 15.7 RATIO (10-20); Calcium,Total 8.5 mg/dL (7.6-11.0); Carbon Dioxide 23.8 mmol/L (21.0-32.0); Chloride 103 mmol/L (98-108); Estimated Creatinine Clearance 81.29 ml/min (50-250); Glucose 97 mg/dL (70-99); Potassium 4.0 mmol/L (3.3-5.1)
[2025-09-11 09:57] VITALS: BP 134/73; PULSE 79; RESP 16; TEMP 36.4; O2SAT 96
[2025-09-11] MEDS: FLUTICASONE/UMECLIDIN/VILANTER 1 EACH BLST.W.DEV INHALATION (11:24)
[2025-09-11 15:12] VITALS: BP 134/77; PULSE 82; RESP 16; TEMP 36.8; O2SAT 94
[2025-09-11 22:09] VITALS: BP 127/82; PULSE 84; RESP 18; TEMP 36.9; O2SAT 97
[2025-09-12 03:48] VITALS: BP 126/81; PULSE 75; RESP 16; TEMP 36.7; O2SAT 96
[2025-09-12] MEDS: Piperacil/Tazobactam 3.375 GM in 0.9% Normal Saline (50mL MB+) 50 ML IV ×3 (05:40→21:43)
[2025-09-12 08:24] VITALS: BP 129/78; PULSE 78; RESP 16; TEMP 36.7; O2SAT 98
--- NOTE | 2025-09-12 08:32 | PCM.PN.HOSP ---
Subjective Subjective Was able to tolerate a clear liquid diet yesterday with minimal abdominal pain Objective Data Objective Data Vital Signs: Vital Signs Temp Pulse Resp BP Pulse Ox O2 Del Method O2 Flow Rate 98.1 F 78 16 129/78 H 98 Room Air 2 09/12/25 08:24 09/12/25 08:24 09/12/25 08:24 09/12/25 08:24 09/12/25 08:24 09/12/25 08:24 09/12/25 03:49 Oxygen Flow Rate (L/min) 2 Oxygen Delivery Method Room Air Weight: 151 lb 12.789 oz Body Mass Index (BMI) 20.5 Intake & Output: Intake and Output for Last 24 Hours 09/11/25 09/12/25 09/13/25 03:59 03:59 03:59 Intake Total 1500 / 1500 2400 / 2400 200 / 200 Balance 1500 / 1500 2400 / 2400 200 / 200 Lab / Micro Data 09/11/25 08:14 09/11/25 08:14 Labs: Laboratory Results - last 24 hr 09/11/25 08:14: Sodium 137, Potassium 4.0, Chloride 103, Carbon Dioxide 23.8, Anion Gap 10, BUN 9, Creatinine 0.59 L, Estim Creat Clear Calc 81.29, Est GFR (MDRD) Non-Af 103, BUN/Creatinine Ratio 15.7, Glucose 97, Calcium 8.5 Micro: Microbiology 09/08/25 10:48 Urine, Clean Catch Urine Culture - Final Culture exhibits no growth. 09/08/25 09:37 Blood Culture (Wb) - Anticubital Right Blood Culture - Preliminary No growth in 48 hours. 09/08/25 09:32 Blood Culture (Wb) - Anticubital Left Blood Culture - Preliminary No growth in 48 hours. Physical Exam Narrative General: Alert, Oriented x3, Cooperative, No apparent distress HEENT: Atraumatic, PERRLA, EOMI, Normocephalic Oral: Moist Mucosa Neck: Supple, No JVD Lungs: Diminished, Normal air movement, No rhonchi, No wheeze, No rales Cardiovascular: Regular rate, Regular Rhythm, Normal S1, Normal S2, No murmurs Abdomen: Soft, minimally TTP to LLQ, Non-Distended, No Hepato-splenomegaly Extremities: No edema, Capillary Refill Less than 3 Seconds Skin: No rashes, No breakdown Musculoskeletal: No Tenderness to Palpation of Joints or Extremities Neurological: No focal neurological deficits, moves all extremities Psych/Mental Status: Normal Affect, Appropriate Assessment & Plan Assessment/Plan (1) Diverticulitis of intestine with abscess: QUALIFIERS: Diverticulitis site: large intestine Diverticulitis bleeding: without bleeding Qualified Code(s): K57.20 - Diverticulitis of large intestine with perforation and abscess without bleeding (2) Sepsis: PLAN: Plan 1. Sepsis secondary to diverticulitis with an abscess ? Continue with Zosyn ? Pain management ? Continue with clear liquid diet today, surgery may be ordering a CT scan of his abdomen and pelvis, will await their evaluation ? IV fluids ? Consult general surgery ? Pending resolution or rapid improvement will need a colonoscopy or at the very least a sigmoidoscopy during this admission and/or close outpatient follow-up 2. COPD ? Not in exacerbation ? Continue with his home inhalers DVT: SCDs Charges/Coding Visit Charges Inpatient E&M: 26241 Subs Hosp L2
[2025-09-12 08:34] LABS: Hematocrit 33.0 % (40-54); Hemoglobin 10.5 g/dL (13.0-16.5); Immature Granulocytes Count 0.030 X10^3/uL (0.0-0.0); Mean Corp Hgb Conc 31.8 g/dL (32-36); Mean Corpuscular Volume 92.4 fL (80-94); Mean Platelet Vol. 10.1 fl (6.2-12.0); NRBC Flagged by Analyzer 0 % (0-5); Platelet Count 339 K/mm3 (150-450); RBC Distribution Width CV 14.1 % (11.6-14.6); RBC Distribution Width SD 47.9 fl (35.1-43.9); Red Blood Count 3.57 M/mm3 (4.6-6.2); White Blood Count 7.2 K/mm3 (4.4-11.0)
--- NOTE | 2025-09-12 08:41 | CT_ITS ---
PROCEDURE: ABDOMEN/PELVIS WITH CONTRAST 09/12/2025 REASON FOR EXAM: Left lower quadrant pain and fever TECHNIQUE: Procedure Code: [id number] Modality: CT Procedure: ABDOMEN/PELVIS WITH CONTRAST Coronal and Sagittal reconstruction series were provided. CONTRAST: Isovue 370 VOLUME: 100 mL One or more dose reduction techniques were used (e.g., Automated exposure control, adjustment of the mA and/or kV according to patient size, use of iterative reconstruction technique. Oral contrast also administered RADIATION DOSE SUMMARY: CTDlvol: 31.44 mGy DLP: 761.62 mGycm COMPARISON: 09/08/2025 FINDINGS: Lung bases: Chronic interstitial changes without a superimposed process Liver: Normal size. No mass. Gallbladder: Unremarkable Spleen: Normal size. Pancreas: Normal size without evidence of mass surrounding inflammation or ductal dilation. Adrenals: Unremarkable Kidneys: No obstructive uropathy or suspicious solid renal lesion Bladder: Incompletely distended, but otherwise unremarkable Bowel: Majority of the small and large bowel loops are unremarkable. However, there is persistent diffuse submucosal thickening and edema in the mid and distal sigmoid colon with pericolonic inflammatory stranding consistent with diverticulitis. No perforation, there is a persistent fluid collection in the left hemipelvis measuring 1.2 x 2 cm consistent with abscess. Underlying neoplastic process could have a similar appearance and further evaluation with colonoscopy is recommended once the acute inflammation has resolved. There has been progression/worsening of the appearance of the sigmoid since the previous study There is diffuse submucosal thickening of the gastric antrum and pyloric channel consistent with gastritis. Appendix: Appendix seen on coronal recon images 36 through 43. Lymph nodes: No suspicious mesenteric or retroperitoneal adenopathy Vasculature: Mild diffuse atherosclerotic calcifications are noted. Peritoneum / Retroperitoneum: No free air Bones: Degenerative bony changes CT/Abdomen/Pelvis WITH Contrast IMPRESSION: Progression/worsening of inflammatory changes and thickening of the mid and dis raul sigmoid colon consistent with acute diverticulitis. An underlying neoplastic process however can have a similar ap pearance and further evaluation with colonoscopy is recommended once the acute inflammation has resolved. There is a persistent 1.2 x 2 cm fluid collection in the left hemipelvis separa te from bowel loops suspicious for an abscess unchanged from the previous study No suspicious solid organ abnormality Gastritis Degenerative bony changes Reading Location: [id number]
--- NOTE | 2025-09-12 09:07 | PN.SURG_ITS ---
Subjective Subjective Patient's pain controlled with Toradol and Tylenol. Patient denies any bowel movement states he is having some flatus. Tolerating clears Objective Data Objective Data Vital Signs: Vital Signs Temp Pulse Resp BP Pulse Ox O2 Del Method O2 Flow Rate 98.1 F 78 16 129/78 H 98 Room Air 2 09/12/25 08:24 09/12/25 08:24 09/12/25 08:24 09/12/25 08:24 09/12/25 08:24 09/12/25 08:24 09/12/25 03:49 Oxygen Flow Rate (L/min) 2 Oxygen Delivery Method Room Air Weight: 151 lb 12.789 oz Body Mass Index (BMI) 20.5 Intake & Output: Intake and Output for Last 24 Hours 09/10/25 09/11/25 09/12/25 23:59 23:59 23:59 Intake Total 1500 / 1500 2150 / 2400 500 / 500 Balance 1500 / 1500 2150 / 2400 500 / 500 Lab / Micro Data 09/12/25 08:25 09/11/25 08:14 Labs: Laboratory Results - last 24 hr 09/12/25 08:25: WBC 7.2, RBC 3.57 L, Hgb 10.5 L, Hct 33.0 L, MCV 92.4, MCH 29.4, MCHC 31.8 L, RDW Std Deviation 47.9 H, RDW Coeff of Isela 14.1, Plt Count 339, MPV 10.1, Immature Gran % (Auto) 0.400, Neut % (Auto) 72.3 H, Lymph % (Auto) 12.4 L, [place] % (Auto) 10.8 H, Eos % (Auto) 3.5, Baso % (Auto) 0.6, Absolute Neuts (auto) 5.2, Absolute Lymphs (auto) 0.89, Nucleated RBC % 0 Micro: Microbiology 09/08/25 10:48 Urine, Clean Catch Urine Culture - Final Culture exhibits no growth. 09/08/25 09:37 Blood Culture (Wb) - Anticubital Right Blood Culture - Preliminary No growth in 48 hours. 09/08/25 09:32 Blood Culture (Wb) - Anticubital Left Blood Culture - Preliminary No growth in 48 hours. Physical Exam Const oriented x3 and no apparent distress Resp normal respiratory effort Cardio regular rate GI soft to palpation GI Narrative: Minimally diffuse per patient but very appears comfortable on exam no peritoneal signs Assessment & Plan Assessment/Plan (1) Diverticulitis of intestine with abscess: QUALIFIERS: Diverticulitis site: large intestine Diverticulitis bleeding: without bleeding Qualified Code(s): K57.20 - Diverticulitis of large intestine with perforation and abscess without bleeding PLAN: Continue clears.?Ordered CT abdomen pelvis with p.o. and IV contrast today may also advance to full depending on CT Continue IV antibiotics and switch over to Tylenol and Toradol for pain control Encourage ambulation and I.S No surgical intervention planned at this time Michelle Wisdom M.D. Pager: [phone] [facility] [address] [place] [address], [facility], [address] [place] [id number] Office: [phone] Charges/Coding Visit Charges Inpatient E&M: 12704 Subs Hosp L2
[2025-09-12 09:11] LABS: Anion Gap 9 (5-15); BUN 10 mg/dL (4-19); BUN/Creat Ratio 16.2 RATIO (10-20); Calcium,Total 8.4 mg/dL (7.6-11.0); Carbon Dioxide 25.6 mmol/L (21.0-32.0); Chloride 103 mmol/L (98-108); Estimated Creatinine Clearance 81.29 ml/min (50-250); Glucose 91 mg/dL (70-99); Potassium 3.7 mmol/L (3.3-5.1)
[2025-09-12] MEDS: 0.9% Normal Saline (1000mL) 1,000 ML 75 ML IV (10:41)
[2025-09-12] MEDS: FLUTICASONE/UMECLIDIN/VILANTER 1 EACH BLST.W.DEV INHALATION (11:19)
[2025-09-12] MEDS: 0.9% Saline Lock 10 ML Syringe IV ×3 (12:03→21:38)
[2025-09-12 14:19] VITALS: BP 121/78; PULSE 70; RESP 16; TEMP 36.8; O2SAT 96
[2025-09-12 21:28] VITALS: BP 126/74; PULSE 78; RESP 18; TEMP 36.6; O2SAT 97
[2025-09-13 06:31] VITALS: BP 141/84; PULSE 78; RESP 22; TEMP 36.4; O2SAT 96
[2025-09-13] MEDS: 0.9% Normal Saline (1000mL) 1,000 ML 75 ML IV ×2 (06:37→19:54)
[2025-09-13] MEDS: Piperacil/Tazobactam 3.375 GM in 0.9% Normal Saline (50mL MB+) 50 ML IV ×3 (06:39→22:15)
[2025-09-13 06:59] LABS: Hematocrit 32.2 % (40-54); Hemoglobin 10.4 g/dL (13.0-16.5); Immature Granulocytes Count 0.040 X10^3/uL (0.0-0.0); Mean Corp Hgb Conc 32.3 g/dL (32-36); Mean Corpuscular Volume 91.5 fL (80-94); Mean Platelet Vol. 10.2 fl (6.2-12.0); NRBC Flagged by Analyzer 0 % (0-5); Platelet Count 342 K/mm3 (150-450); RBC Distribution Width CV 14.1 % (11.6-14.6); RBC Distribution Width SD 47.4 fl (35.1-43.9); Red Blood Count 3.52 M/mm3 (4.6-6.2); White Blood Count 7.2 K/mm3 (4.4-11.0)
[2025-09-13 08:10] LABS: Anion Gap 8 (5-15); BUN 7 mg/dL (4-19); BUN/Creat Ratio 12.3 RATIO (10-20); Calcium,Total 8.2 mg/dL (7.6-11.0); Carbon Dioxide 25.2 mmol/L (21.0-32.0); Chloride 104 mmol/L (98-108); Estimated Creatinine Clearance 81.29 ml/min (50-250); Glucose 86 mg/dL (70-99); Potassium 3.5 mmol/L (3.3-5.1)
[2025-09-13 08:12] VITALS: BP 137/71; PULSE 81; RESP 16; TEMP 36.6; O2SAT 96
--- NOTE | 2025-09-13 09:03 | PN.HOSP_ITS ---
Subjective Subjective Doing well, pain is improving Objective Data Objective Data Vital Signs: Vital Signs Temp Pulse Resp BP Pulse Ox O2 Del Method O2 Flow Rate 97.8 F 81 16 137/71 H 96 Room Air 2 09/13/25 08:12 09/13/25 08:12 09/13/25 08:12 09/13/25 08:12 09/13/25 08:12 09/13/25 08:12 09/13/25 07:32 Oxygen Flow Rate (L/min) 2 Oxygen Delivery Method Room Air Weight: 151 lb 12.789 oz Body Mass Index (BMI) 20.5 Intake & Output: Intake and Output for Last 24 Hours 09/12/25 09/13/25 09/14/25 03:59 03:59 03:59 Intake Total 2400 / 2400 1690.00 / 1690.00 901.25 / 901.25 Balance 2400 / 2400 1690.00 / 1690.00 901.25 / 901.25 Lab / Micro Data 09/13/25 06:36 09/13/25 06:31 Labs: Laboratory Results - last 24 hr 09/12/25 08:25: Sodium 137, Potassium 3.7, Chloride 103, Carbon Dioxide 25.6, Anion Gap 9, BUN 10, Creatinine 0.63 L, Estim Creat Clear Calc 81.29, Est GFR (MDRD) Non-Af 101, BUN/Creatinine Ratio 16.2, Glucose 91, Calcium 8.4 09/13/25 06:31: Sodium 137, Potassium 3.5, Chloride 104, Carbon Dioxide 25.2, Anion Gap 8, BUN 7, Creatinine 0.59 L, Estim Creat Clear Calc 81.29, Est GFR (MDRD) Non-Af 103, BUN/Creatinine Ratio 12.3, Glucose 86, Calcium 8.2 09/13/25 06:36: WBC 7.2, RBC 3.52 L, Hgb 10.4 L, Hct 32.2 L, MCV 91.5, MCH 29.5, MCHC 32.3, RDW Std Deviation 47.4 H, RDW Coeff of Isela 14.1, Plt Count 342, MPV 10.2, Immature Gran % (Auto) 0.600, Neut % (Auto) 71.3 H, Lymph % (Auto) 11.7 L, [place] % (Auto) 10.9 H, Eos % (Auto) 4.9, Baso % (Auto) 0.6, Absolute Neuts (auto) 5.1, Absolute Lymphs (auto) 0.84, Nucleated RBC % 0 Micro: Microbiology 09/08/25 10:48 Urine, Clean Catch Urine Culture - Final Culture exhibits no growth. 09/08/25 09:37 Blood Culture (Wb) - Anticubital Right Blood Culture - Preliminary No growth in 48 hours. 09/08/25 09:32 Blood Culture (Wb) - Anticubital Left Blood Culture - Preliminary No growth in 48 hours. Radiography Diagnostic Testing: Radiology Impression Abdomen/Pelvis CT 09/12/25 08:41 IMPRESSION: Progression/worsening of inflammatory changes and thickening of the mid and distal sigmoid colon consistent with acute diverticulitis. An underlying neoplastic process however can have a similar appearance and further evaluation with colonoscopy is recommended once the acute inflammation has resolved. There is a persistent 1.2 x 2 cm fluid collection in the left hemipelvis separate from bowel loops suspicious for an abscess unchanged from the previous study No suspicious solid organ abnormality Gastritis Degenerative bony changes Reading Location: [facility] Physical Exam Narrative General: Alert, Oriented x3, Cooperative, No apparent distress HEENT: Atraumatic, PERRLA, EOMI, Normocephalic Oral: Moist Mucosa Neck: Supple, No JVD Lungs: Diminished, Normal air movement, No rhonchi, No wheeze, No rales Cardiovascular: Regular rate, Regular Rhythm, Normal S1, Normal S2, No murmurs Abdomen: Soft, minimally TTP to LLQ, Non-Distended, No Hepato-splenomegaly Extremities: No edema, Capillary Refill Less than 3 Seconds Skin: No rashes, No breakdown Musculoskeletal: No Tenderness to Palpation of Joints or Extremities Neurological: No focal neurological deficits, moves all extremities Psych/Mental Status: Normal Affect, Appropriate Assessment & Plan Assessment/Plan (1) Diverticulitis of intestine with abscess: QUALIFIERS: Diverticulitis site: large intestine Diverticulitis bleeding: without bleeding Qualified Code(s): K57.20 - Diverticulitis of large intestine with perforation and abscess without bleeding (2) Sepsis: PLAN: Plan 1. Sepsis secondary to diverticulitis with an abscess ? Continue with Zosyn ? Pain management ? Continue with clear liquid diet today, CT yesterday demonstrates inflammatory thickening versus mass in the rectosigmoid colon ? IV fluids ? Consult general surgery ? Pending resolution or rapid improvement will need a colonoscopy or at the very least a sigmoidoscopy during this admission and/or close outpatient follow-up 2. COPD ? Not in exacerbation ? Continue with his home inhalers DVT: SCDs Charges/Coding Visit Charges Inpatient E&M: 75026 Subs Hosp L2
--- NOTE | 2025-09-13 10:18 | PCM.PN.SRG ---
Subjective Subjective CT abdomen pelvis report states worsening/progression of thickening of the sigmoid colon. On my read I think it is roughly about the same patient also had very prominent/notable thickening on CAT scan 2019. Patient tolerated full liquids with no nausea and vomiting. Patient did have diarrhea yesterday likely due to the contrast from the CAT scan Objective Data Objective Data Vital Signs: Vital Signs Temp Pulse Resp BP Pulse Ox O2 Del Method O2 Flow Rate 97.8 F 81 16 137/71 H 96 Room Air 2 09/13/25 08:12 09/13/25 08:12 09/13/25 08:12 09/13/25 08:12 09/13/25 08:12 09/13/25 08:12 09/13/25 07:32 Oxygen Flow Rate (L/min) 2 Oxygen Delivery Method Room Air Weight: 151 lb 12.789 oz Body Mass Index (BMI) 20.5 Intake & Output: Intake and Output for Last 24 Hours 09/11/25 09/12/25 09/13/25 23:59 23:59 23:59 Intake Total 2150 / 2400 1940.00 / 1940.00 951.25 / 951.25 Balance 2150 / 2400 1940.00 / 1940.00 951.25 / 951.25 Lab / Micro Data 09/13/25 06:36 09/13/25 06:31 Labs: Laboratory Results - last 24 hr 09/13/25 06:31: Sodium 137, Potassium 3.5, Chloride 104, Carbon Dioxide 25.2, Anion Gap 8, BUN 7, Creatinine 0.59 L, Estim Creat Clear Calc 81.29, Est GFR (MDRD) Non-Af 103, BUN/Creatinine Ratio 12.3, Glucose 86, Calcium 8.2 09/13/25 06:36: WBC 7.2, RBC 3.52 L, Hgb 10.4 L, Hct 32.2 L, MCV 91.5, MCH 29.5, MCHC 32.3, RDW Std Deviation 47.4 H, RDW Coeff of Isela 14.1, Plt Count 342, MPV 10.2, Immature Gran % (Auto) 0.600, Neut % (Auto) 71.3 H, Lymph % (Auto) 11.7 L, [place] % (Auto) 10.9 H, Eos % (Auto) 4.9, Baso % (Auto) 0.6, Absolute Neuts (auto) 5.1, Absolute Lymphs (auto) 0.84, Nucleated RBC % 0 Micro: Microbiology 09/08/25 10:48 Urine, Clean Catch Urine Culture - Final Culture exhibits no growth. 09/08/25 09:37 Blood Culture (Wb) - Anticubital Right Blood Culture - Preliminary No growth in 48 hours. 09/08/25 09:32 Blood Culture (Wb) - Anticubital Left Blood Culture - Preliminary No growth in 48 hours. Radiography Diagnostic Testing: Radiology Impression Abdomen/Pelvis CT 09/12/25 08:41 IMPRESSION: Progression/worsening of inflammatory changes and thickening of the mid and distal sigmoid colon consistent with acute diverticulitis. An underlying neoplastic process however can have a similar appearance and further evaluation with colonoscopy is recommended once the acute inflammation has resolved. There is a persistent 1.2 x 2 cm fluid collection in the left hemipelvis separate from bowel loops suspicious for an abscess unchanged from the previous study No suspicious solid organ abnormality Gastritis Degenerative bony changes Reading Location: [facility] Physical Exam Const oriented x3 and no apparent distress Resp normal respiratory effort Cardio regular rate GI soft to palpation and non-tender Inspection: Negative for abdominal distention Assessment & Plan Assessment/Plan (1) Diverticulitis of intestine with abscess: QUALIFIERS: Diverticulitis site: large intestine Diverticulitis bleeding: without bleeding Qualified Code(s): K57.20 - Diverticulitis of large intestine with perforation and abscess without bleeding PLAN: Okay to continue full liquids until midnight then would switch to clears as patient would benefit from a sigmoidoscopy as he has had this thickening since 2019 CAT scan and he has never had a colonoscopy. Continue IV antibiotics and on Tylenol and Toradol for pain control Encourage ambulation and I.S No surgical intervention planned at this time Michelle Wisdom M.D. Pager: [phone] [facility] [address] [place] [address], [facility], [address] [place] [id number] Office: [phone] Charges/Coding Visit Charges Inpatient E&M: 21943 Subs Hosp L2
[2025-09-13 11:22] VITALS: BP 131/86; PULSE 77; RESP 16; TEMP 37.3; O2SAT 96
[2025-09-13] MEDS: FLUTICASONE/UMECLIDIN/VILANTER 1 EACH BLST.W.DEV INHALATION (12:36)
[2025-09-13 15:30] VITALS: BP 139/79; PULSE 76; RESP 16; TEMP 36.7; O2SAT 98
[2025-09-13 21:30] VITALS: BP 143/77; PULSE 80; RESP 16; TEMP 36.6; O2SAT 98
[2025-09-14] VITALS (14 sets, daily range): BP systolic 106–152; BP diastolic 65–91; PULSE 74–89; RESP 16–20; TEMP 36.5–37.3; O2SAT 16–99; BMI 20.5
[2025-09-14] MEDS: Piperacil/Tazobactam 3.375 GM in 0.9% Normal Saline (50mL MB+) 50 ML IV ×3 (06:15→21:04)
--- NOTE | 2025-09-14 08:31 | PCM.PN.SRG ---
Subjective Subjective Patient evaluated sitting at the side of the bed. He notes very little abdominal pain. He denies any nausea, vomiting, fever. He denies any flatus or bowel movement. Objective Data Objective Data Vital Signs: Vital Signs Temp Pulse Resp BP Pulse Ox O2 Del Method O2 Flow Rate 98 F 85 18 148/84 H 98 Nasal Cannula 2 09/14/25 08:18 09/14/25 08:18 09/14/25 08:18 09/14/25 08:18 09/14/25 08:18 09/14/25 08:18 09/14/25 08:18 Oxygen Flow Rate (L/min) 2 Oxygen Delivery Method Nasal Cannula Weight: 151 lb 12.789 oz Body Mass Index (BMI) 20.5 Intake & Output: Intake and Output for Last 24 Hours 09/12/25 09/13/25 09/14/25 23:59 23:59 23:59 Intake Total 1940.00 / 1940.00 2797.50 / 2797.50 300 / 300 Balance 1940.00 / 1940.00 2797.50 / 2797.50 300 / 300 Lab / Micro Data 09/13/25 06:36 09/13/25 06:31 Micro: Microbiology 09/08/25 09:32 Blood Culture (Wb) - Anticubital Left Blood Culture - Final No growth in 5 days. 09/08/25 09:37 Blood Culture (Wb) - Anticubital Right Blood Culture - Final No growth in 5 days. 09/08/25 10:48 Urine, Clean Catch Urine Culture - Final Culture exhibits no growth. Physical Exam GI GI Narrative: Abdomen- soft, nontender Assessment & Plan Assessment/Plan (1) Diverticulitis of intestine with abscess: QUALIFIERS: Diverticulitis site: large intestine Diverticulitis bleeding: without bleeding Qualified Code(s): K57.20 - Diverticulitis of large intestine with perforation and abscess without bleeding PLAN: I am following this patient in conjunction with Dr. Wisdom. She will independently evaluate this patient. Labs reviewed. No changes Patient NPO in preparation for a sigmoidoscopy later today with Dr. Cheng No surgical intervention being recommended at this time CT scan ab/pel ordered on 09/12 demonstrated progression/worsening inflammatory changes consiste with acute diverticulitis. A fluid collection is continuing to be noted. Continue IV antibiotics We will continue to monitor this patient. Charges/Coding Visit Charges Inpatient E&M: 58541 Subs Hosp L2
[2025-09-14 09:31] LABS: Hematocrit 30.7 % (40-54); Hemoglobin 10.0 g/dL (13.0-16.5); Immature Granulocytes Count 0.030 X10^3/uL (0.0-0.0); Mean Corp Hgb Conc 32.6 g/dL (32-36); Mean Corpuscular Volume 91.6 fL (80-94); Mean Platelet Vol. 10.3 fl (6.2-12.0); NRBC Flagged by Analyzer 0 % (0-5); Platelet Count 340 K/mm3 (150-450); RBC Distribution Width CV 14.4 % (11.6-14.6); RBC Distribution Width SD 48.0 fl (35.1-43.9); Red Blood Count 3.35 M/mm3 (4.6-6.2); White Blood Count 7.1 K/mm3 (4.4-11.0)
--- NOTE | 2025-09-14 09:31 | PCM.PN.HOSP ---
Subjective Subjective Doing well, no issues overnight pain is improved Objective Data Objective Data Vital Signs: Vital Signs Temp Pulse Resp BP Pulse Ox O2 Del Method O2 Flow Rate 98 F 85 18 148/84 H 98 Nasal Cannula 2 09/14/25 08:18 09/14/25 08:18 09/14/25 08:18 09/14/25 08:18 09/14/25 08:18 09/14/25 08:18 09/14/25 08:18 Oxygen Flow Rate (L/min) 2 Oxygen Delivery Method Nasal Cannula Weight: 151 lb 12.789 oz Body Mass Index (BMI) 20.5 Intake & Output: Intake and Output for Last 24 Hours 09/13/25 09/14/25 09/15/25 03:59 03:59 03:59 Intake Total 1690.00 / 1690.00 2797.50 / 2797.50 250 / 250 Balance 1690.00 / 1690.00 2797.50 / 2797.50 250 / 250 Lab / Micro Data 09/13/25 06:36 09/13/25 06:31 Micro: Microbiology 09/08/25 09:32 Blood Culture (Wb) - Anticubital Left Blood Culture - Final No growth in 5 days. 09/08/25 09:37 Blood Culture (Wb) - Anticubital Right Blood Culture - Final No growth in 5 days. 09/08/25 10:48 Urine, Clean Catch Urine Culture - Final Culture exhibits no growth. Physical Exam Narrative General: Alert, Oriented x3, Cooperative, No apparent distress HEENT: Atraumatic, PERRLA, EOMI, Normocephalic Oral: Moist Mucosa Neck: Supple, No JVD Lungs: Diminished, Normal air movement, No rhonchi, No wheeze, No rales Cardiovascular: Regular rate, Regular Rhythm, Normal S1, Normal S2, No murmurs Abdomen: Soft, minimally TTP to LLQ, Non-Distended, No Hepato-splenomegaly Extremities: No edema, Capillary Refill Less than 3 Seconds Skin: No rashes, No breakdown Musculoskeletal: No Tenderness to Palpation of Joints or Extremities Neurological: No focal neurological deficits, moves all extremities Psych/Mental Status: Normal Affect, Appropriate Assessment & Plan Assessment/Plan (1) Diverticulitis of intestine with abscess: QUALIFIERS: Diverticulitis site: large intestine Diverticulitis bleeding: without bleeding Qualified Code(s): K57.20 - Diverticulitis of large intestine with perforation and abscess without bleeding (2) Sepsis: PLAN: Plan 1. Sepsis secondary to diverticulitis with an abscess ? Continue with Zosyn ? Pain management ? Continue with clear liquid diet today, CT yesterday demonstrates inflammatory thickening versus mass in the rectosigmoid colon ? IV fluids ? Consult general surgery ?Will consult GI for flex sig to evaluate the lesion in his rectosigmoid colon 2. COPD ? Not in exacerbation ? Continue with his home inhalers DVT: SCDs Charges/Coding Visit Charges Inpatient E&M: 17909 Subs Hosp L2
[2025-09-14] MEDS: 0.9% Normal Saline (1000mL) 1,000 ML 75 ML IV (09:38)
[2025-09-14 10:02] LABS: Anion Gap 7 (5-15); BUN 7 mg/dL (4-19); BUN/Creat Ratio 13.1 RATIO (10-20); Calcium,Total 8.3 mg/dL (7.6-11.0); Carbon Dioxide 26.6 mmol/L (21.0-32.0); Chloride 106 mmol/L (98-108); Estimated Creatinine Clearance 81.29 ml/min (50-250); Glucose 103 mg/dL (70-99); Potassium 3.5 mmol/L (3.3-5.1)
[2025-09-14] MEDS: FLUTICASONE/UMECLIDIN/VILANTER 1 EACH BLST.W.DEV INHALATION (10:59)
--- NOTE | 2025-09-14 13:56 | EX.PCM.CON.G ---
HPI Consult Data Date of Consult: 09/14/25 HPI Narrative Reason for Consultation: Pt w recurrent diverticulitis; 1 wk admit; CT persistent inflam; plan flex HPI Narrative: AZIZA RODRIGUEZ is a 70 M who presents to the [facility] approximately 1 week ago. Patient reports a history of diverticulitis with at least two prior episodes. First episode was diagnosed by a primary housekeeper child care (Milena Curry) after nine days of abdominal pain; medication was prescribed and symptoms improved within a few days. A subsequent episode occurred during a trip to [place] after eating pizza; the patient went to the emergency room, was told it was diverticulitis, received medicine, and improved after a few days. Mentions a possible third episode but is uncertain. The current episode began approximately three weeks ago and started strongly, with severe pain. The patient delayed seeking care and initially spoke with nursing staff rather than being seen by the doctor. Reports trying ?sulfur pills? suggested by an acquaintance; they provided relief for one to two days, then pain returned ?with a vengeance.? Another acquaintance suggested ?CEPH,? clarified as cephalexin; patient was unsure if that was appropriate. Aches were described in the back, kidney area, and pancreas, leading the patient to seek urology care. A urologist reviewed a CT scan, stated the kidneys looked good, and suspected a colon issue; the patient was referred to a configuration management specialist. States being hospitalized for nearly one week. Current concern includes ongoing inflammation on CT; consulting team discussed that CT shows smoldering diverticulitis with concern for a possible mass, with plans to perform a scope under twilight sedation to evaluate and rule out cancer. ] [facility] Medical History Rib fracture COPD (chronic obstructive pulmonary disease) Weight loss Home Medications ?Medication ?Instructions ?Recorded ?Last Taken ?Type fluticasone fur. 100 mcg-umeclid 1 inh inhalation QDAY #60 ea 05/26/25 Unknown Rx 62.5 mcg-vilant 25 mcg inhalat.powder (Trelegy Ellipta) albuterol sulfate 90 mcg/actuation 2 puff inhalation Q4H PRN 08/24/25 Unknown Rx aerosol inhaler (Ventolin HFA) shortness of breath or wheezing #18 grams Allergy/AdvReac Type Severity Reaction Status Date / Time No Known Allergies Allergy Verified 09/08/25 09:13 Family History Other Cancer Surgical History H/O hernia repair Social History Smoking Status: Current every day smoker tobacco type: cigarettes Tobacco: How many years used: 59 Smokeless tobacco user: chewing tobacco Electronic Cigarette Use: with nicotine second hand exposure: Yes ROS Constitutional Constitutional: Denies fatigue, fever(s), poor appetite, weight gain or weight loss Gastrointestinal Gastrointestinal: Denies belching, bloating, change in bowel habits, change in stool character, chewing difficulty, coffee ground emesis, constipation, cramping, diarrhea, dyspepsia, dysphagia, early satiety, excessive flatus, fecal incontinence, heartburn, hematemesis, hematochezia, hemorrhoids, loose stools, melena, nausea, odynophagia, rectal bleeding, tenesmus, vomiting or weight changes Physical Exam Const alert, oriented x3, no apparent distress and healthy appearing General Appearance: cooperative GI normal to inspection, nondistended, normoactive bowel sounds, soft to palpation, non-tender and non-distended Percussion: normal to percussion Rectal Exam: deferred Lab / Micro Data 09/14/25 09:06 09/14/25 09:06 Labs: Laboratory Results - last 24 hr 09/14/25 09:06: WBC 7.1, RBC 3.35 L, Hgb 10.0 L, Hct 30.7 L, MCV 91.6, MCH 29.9, MCHC 32.6, RDW Std Deviation 48.0 H, RDW Coeff of Isela 14.4, Plt Count 340, MPV 10.3, Immature Gran % (Auto) 0.400, Neut % (Auto) 76.0 H, Lymph % (Auto) 9.6 L, [place] % (Auto) 9.1, Eos % (Auto) 4.1, Baso % (Auto) 0.8, Absolute Neuts (auto) 5.4, Absolute Lymphs (auto) 0.68 L, Nucleated RBC % 0, Sodium 139, Potassium 3.5, Chloride 106, Carbon Dioxide 26.6, Anion Gap 7, BUN 7, Creatinine 0.50 L, Estim Creat Clear Calc 81.29, Est GFR (MDRD) Non-Af 108, BUN/Creatinine Ratio 13.1, Glucose 103 H, Calcium 8.3 Micro: Microbiology 09/08/25 09:32 Blood Culture (Wb) - Anticubital Left Blood Culture - Final No growth in 5 days. 09/08/25 09:37 Blood Culture (Wb) - Anticubital Right Blood Culture - Final No growth in 5 days. Assessment & Plan Assessment/Plan (1) Diverticulitis of intestine with abscess: QUALIFIERS: Diverticulitis site: large intestine Diverticulitis bleeding: without bleeding Qualified Code(s): K57.20 - Diverticulitis of large intestine with perforation and abscess without bleeding (2) Weight loss: PLAN: Diverticulitis with persistent inflammation on CT : Pet Walker reviewed CT and noted smoldering diverticulitis with concern for a possible mass; plan to evaluate further and rule out cancer. - Plan for a flexible scope under twilight sedation to evaluate the colon and rule out malignancy. Abdominal pain : Ongoing abdominal pain associated with current episode; hospitalization ongoing. Portions of this note were generated using voice recognition software ([employer] Dictation). I have reviewed the contents and every effort has been made to ensure accuracy; however, inadvertent errors in grammar, spelling, punctuation, or word choice may occur, that were not noted before signing the document and should not alter the intended clinical meaning. Charges/Coding Visit Charges Inpatient E&M: 24323 Init Hosp L3
[2025-09-14] MEDS: Lactated Ringers 1,000 ML 15 ML IV (15:39)
--- NOTE | 2025-09-14 16:00 | COLBX_PTH ---
PATIENT: AZIZA RODRIGUEZ LOC: MS3 U#:[id number] AGE/SX: 70/M ROOM: [facility] RE09/08/[address]: Dr. Parmjit Mcmillan MD : 1955 BED: 1 DIS: 09/15/2025 SPEC #: [id number] RECD: 09/15/25 07:38 STATUS: VERONA DURHAMRosario #: [id number] SANTIAGO: 09/14/25 16:[address]: Jose Cheng DEPT: SURGICAL PATHOLOGY RECD BY: Kevin De Leon ENTERED: 09/15/25 10:05 SP TYPE: COLON BX OTHR DR: MD Dr. Parmjit Finley MD Dr. Tamera Robotham, MD Tissues: A - Sigmoid colon biopsy Procedures: Surgery Specimen Level IV HEADER OPERATION: Flexible sigmoidoscopy with biopsies PRE-OP DIAGNOSIS: Abnormal CT TISSUE SUBMITTED: A- Sigmoid colon biopsy MICROSCOPIC DIAGNOSIS A. Colon, sigmoid, biopsy: * Colonic mucosa with no pathologic change MICROSCOPIC DESCRIPTION Slides are reviewed. GROSS DESCRIPTION A. Received in fixative is one container labeled with the patient's name and designated Sigmoid colon biopsy. The specimen consists of three irregular fragments of acosta tissue that measure 0.3 to 0.5 cm. The specimen is totally submitted in one cassette. OH 09/15/2025 CPT:17487
--- NOTE | 2025-09-14 16:05 | PCM.PRE.AN2 ---
ASA Classification* ASA Classification ASA Classification: 3 Assessment & Plan Anesthesia* Anesthesia Assessment Anesthesia Assessment: Discussed sedation and/or anesthesia options, risks, benefits, and alternatives with patient/parents/legal guardian/POA. Questions invited. The patient/parents/legal guardian/POA seems to understand and agrees to proceed with anesthesia plan. Reviewed the physical assessment, medical history, allergy history and patient home medications list prior to surgery/procedure/anesthetic and documented any changes. Performed airway and anesthesia risk assessments. Anesthesia Type Anesthesia Type: MAC History Source History Obtained from:: Patient and Chart Anesthesia Focused Assessment* Temperature: 98.1 F Pulse Rate: 77 Blood Pressure: 152/91 Respiratory Rate: 18 Pulse Ox: 99 Oxygen Delivery Method: Room Air Airway Assessment Mouth opens: >3 cm Mallampati Score: III Teeth Condition: Chipped/Broken Neck Range of motion (ROM): Full ROM Labs Anesthesia Preop lab: CBC WBC, (4.4-11.0) 7.1 K/mm3 Today, 09:06 RBC, (4.6-6.2) 3.35 M/mm3 L Today, 09:06 Hgb, (13.0-16.5) 10.0 g/dL L Today, 09:06 Hct, (40-54) 30.7 % L Today, 09:06 Plt Count, (150-450) 340 K/mm3 Today, 09:06 CHEMISTRY Potassium, (3.3-5.1) 3.5 mmol/L Today, 09:06 Sodium, (133-145) 139 mmol/L Today, 09:06 BUN, (4-19) 7 mg/dL Today, 09:06 Creatinine, (0.70-1.20) 0.50 mg/dL L Today, 09:06 Glucose, (70-99) 103 mg/dL H Today, 09:06 TSH, (0.358-3.74) 0.73 uIU/mL 04/20/20, 10:34 COAG PT, (11.7-14.9) 14.7 SECONDS 09/08/25, 09:28 Pre-Assessment Diagnosis/Proposed Procedure Planned Operative Procedure(s): Sigmoidoscopy Anesthesia History Anesthesia History - fraud investigator: Anesthesia History - fraud investigator Hx Hospitalization Any Problems With Anesthesia No 09/14/25 14:08 Cholinesterase deficiency No 09/14/25 14:08 You/Your Family Experience No 09/14/25 14:08 fever (hyperthermia) with Relationship Recent Exposure to Contagious No 09/14/25 14:08 Disease Does patient have nerve No 09/14/25 14:08 stimulator Patient instructed to have No 09/14/25 14:08 device shut off --Does patient have Pacemaker No 09/14/25 14:09 or ICD? When Was Last Pacemaker Check QUESTION #4 FULL TEXT: You/Your Family Experience fever (hyperthermia) with Anesthesia Any additional information?: No Last Oral Intake Last Oral intake: Last Oral Intake NPO since 08:00 09/14/25 14:09 Meds taken in AM with sips of No 09/14/25 14:09 water? Meds patient instructed to take am of surgery Any additional information?: Yes NPO since: 18:00 (last food) Meds taken in AM with sips of water?: Yes PONV PONV - fraud investigator: PONV - fraud investigator Female HX of Motion Sickness HX of N/V After Surgery Non-Smoker Duration of Surgery greater than 60 minutes Number of Risk Factors PONV Score Any additional information?: No Height & Weight Height & Weight: Anesthesia: Height & Weight Height 6 ft 09/14/25 14:09 Weight: 68.855 kg 09/14/25 14:09 Body Mass Index (BMI) 20.5 09/14/25 14:09 Respiratory Assessment Respiratory Assessment - fraud investigator: Respiratory Tract Infection Hx - fraud investigator Hx Respiratory Tract Infection No 09/14/25 14:08 Any additional information?: No STOP Sleep Apnea STOP Sleep Apnea - fraud investigator: STOP Sleep Apnea - fraud investigator Hx Hypertension No 09/08/25 15:02 Hx Sleep Apnea No 09/08/25 15:02 CPAP BIPAP Do you snore loudly (louder No 09/08/25 15:02 than talking or can be heard Do you often feel tired/ No 09/08/25 15:02 fatigued/ sleepy during daytime? Has anyone observed you stop No 09/08/25 15:02 breathing during sleep? STOP Results Negative 09/08/25 15:02 QUESTION #5 FULL TEXT : Do you snore loudly (louder than talking or can be heard through closed doors)? Any additional information?: No Tobacco Use History Tobacco Use History - fraud investigator: Tobacco Use History - fraud investigator Tobacco Use Smoking Status Current every day smoker 09/08/25 16:29 Hx Tobacco Use Yes 09/08/25 15:02 Years Smoking Packs Smoked per Day Smoking Cessation Date was within the last 15 years Hx Smoking Cessation Date Hx Smoking Cessation Counseling Any additional information?: No Hematologic Medial History Hematologic Hx - fraud investigator: Hematologic Medical Hx - qa intern Hx of Blood Transfusion No 09/08/25 15:02 Hx of Transfusion in last 3 No 09/08/25 15:02 Months Date of Last Transfusion (if within last 3 months) Ever experience any problems No 09/08/25 15:02 with transfusion(s)? Specify any problems Hx of Preganancy in last 3 N/A 09/08/25 15:02 Months Nurse Filling Out [facility] 09/08/25 15:02 & Questions: Date: 09/08/25 09/08/25 15:02 Time: 15:21 09/08/25 15:02 Patient unable to answer at this time (ie. confused, unrespo Any additional information?: No /Reproduction History /Reproductive History - fraud investigator: /Reproductive Hx- fraud investigator Hx Now No 09/14/25 14:08 Gestational Age (in weeks): EDC: Hx Hx Para Hx Section SAB No 09/14/25 14:08 Does the father of the baby or his family experience fever w Father of the baby Malignant Hypertension history comment Any additional information?: No Active Medications Active Medications: Current Medications Generic Name Dose Route Start Last Admin Trade Name Freq PRN Reason Stop Dose Admin Acetaminophen 1,000 mg 09/10/25 14:00 09/14/25 14:01 Acetaminophen 500 Mg Tablet PO Not Given Q8 BIMAL Sodium Chloride 1,000 mls @ 75 mls/hr 09/08/25 15:02 09/14/25 09:38 IV 75 mls/hr .[id number] BIMAL Administration Piperacillin Sod/Tazobactam 50 mls @ 12.5 mls/hr 09/08/25 22:00 09/14/25 13:58 Sod 3.375 gm/ Sodium Chloride IV 12.5 mls/hr Q8 BIMAL Administration Sodium Chloride 250 mls @ 15 mls/hr 09/08/25 15:03 IV .[id number] PRN Saline Flush Sodium Chloride 250 mls @ 15 mls/hr 09/08/25 15:03 IV .[id number] PRN Additional IVPB Infusion Lactated Ringer's 1,000 mls @ 15 mls/hr 09/14/25 15:15 09/14/25 15:39 IV 15 mls/hr .Q48H BIMAL Administration Ketorolac Tromethamine 15 mg 09/10/25 07:58 09/14/25 13:58 Ketorolac 15 Mg/Ml Vial IV 09/15/25 07:58 15 mg Q6H PRN PRN Administration Pain Score 1-10 Morphine Sulfate 2 mg 09/08/25 20:29 09/10/25 04:45 Morphine 2 Mg/Ml Syringe IV 2 mg Q2H PRN PRN Administration Pain Score 4-10 Sodium Chloride 10 - 40 ml 09/08/25 15:03 09/12/25 21:38 0.9% Saline Lock 10 Ml Syringe IV 20 ml UD PRN Administration SALINE FLUSH PFSH Medical History Rib fracture COPD (chronic obstructive pulmonary disease) Weight loss Home Medications ?Medication ?Instructions ?Recorded ?Last Taken ?Type fluticasone fur. 100 mcg-umeclid 1 inh inhalation QDAY #60 ea 05/26/25 Unknown Rx 62.5 mcg-vilant 25 mcg inhalat.powder (Trelegy Ellipta) albuterol sulfate 90 mcg/actuation 2 puff inhalation Q4H PRN 08/24/25 Unknown Rx aerosol inhaler (Ventolin HFA) shortness of breath or wheezing #18 grams Allergy/AdvReac Type Severity Reaction Status Date / Time No Known Allergies Allergy Verified 09/08/25 09:13 Family History Other Cancer no significant family history Surgical History H/O hernia repair Social History Smoking Status: Current every day smoker tobacco type: cigarettes Tobacco: How many years used: 59 Smokeless tobacco user: chewing tobacco Electronic Cigarette Use: with nicotine second hand exposure: Yes Review of Systems (Anesthesia) ROS Narrative System reviewed and no additional complaints, except as documented. Review of Systems ROS Unobtainable: Denies due to encephalopathy, due to endotracheal tube, due to mental condition, due to mental status or other Physical Exam Const alert, oriented x3 and average body habitus Orientation / Consciousness: awake Neck full ROM Resp normal respiratory effort Resp Narrative: COPD, electively wears oxygen 2l/min at night, pt states breathing feels good today. Denies wheezing, SOB, or productive cough Auscultation: clear to auscultation bilaterally Cardio regular rate GI GI Narrative: Abdominal discomfort x3.5 weeks Back/Spine normal ROM and thoraco-lumbar ROM normal Extremity full ROM Neuro oriented x3 and moves all extremities
--- NOTE | 2025-09-14 16:52 | PCM.POST.ANE ---
Anesthesia: Postop Eval I Current Vital Signs Temperature: 97.9 F Pulse Rate: 87 Blood Pressure: 106/65 Respiratory Rate: 20 Pulse Ox: 93 Assessment Airway patent: Yes Spontaneous unlabored respirations: Yes nausea: No Vomiting: No Anesthesia Complication: No Fluid Hydration Crystalloid volume administer (ml): 300 Total IV fluid infused: 300 Progress Note Anesthesia document: Postop Eval 1 completed: Yes
--- NOTE | 2025-09-14 17:02 | OP.PROVAT_ITS ---
09/14/2025 Kasie Pearce Md Re : Flexible Sigmoidoscopy procedure for Pardeep Pulliam Dear Portia This procedure was performed on Sunday, September 14, 2025. My impressions and recommendations are as follows: Impressions : - Diverticulosis in the recto-sigmoid colon, in the sigmoid colon and in the descending colon. Biopsied. - The examination was otherwise normal. Recommendations : - Use original regular Metamucil one tablespoon PO daily. My findings are described in the full procedure note, which is enclosed. If I can be of further assistance, please feel free to contact me at . Sincerely, Jose Cheng, 09/14/2025 5:01:52 PM This report has been signed electronically.
--- NOTE | 2025-09-14 17:02 | OP.FLEXSIG_ITS ---
Patient Name: Pardeep Pulliam Procedure Date: 09/14/2025 3:53 PM Date of : 1955 Age: 70 Procedure: Flexible Sigmoidoscopy Indications: Abdominal pain in the left lower quadrant Providers: Jose Cheng DO Medicines: Monitored Anesthesia Care Patient Profile: This is a 70 year old male. Refer to note in patient chart for documentation of history and physical. Patient has symptoms of acute left upper quadrant abdominal pain. Complications: No immediate complications. Procedure: Pre-Anesthesia Assessment: - Prior to the procedure, a History and Physical was performed, and patient medications and allergies were reviewed. The patient is competent. The risks and benefits of the procedure and the sedation options and risks were discussed with the patient. All questions were answered and informed consent was obtained. Patient identification and proposed procedure were verified by the physician in the pre-procedure area. Mental Status Examination: alert and oriented. Airway Examination: normal oropharyngeal airway and neck mobility. Respiratory Examination: clear to auscultation. CV Examination: normal. ASA Grade Assessment: II - A patient with mild systemic disease. After reviewing the risks and benefits, the patient was deemed in satisfactory condition to undergo the procedure. The anesthesia plan was to use monitored anesthesia care (MAC). Immediately prior to administration of medications, the patient was re-assessed for adequacy to receive sedatives. The heart rate, respiratory rate, oxygen saturations, blood pressure, adequacy of pulmonary ventilation, and response to care were monitored throughout the procedure. The physical status of the patient was re-assessed after the procedure. After obtaining informed consent, the endoscope was passed under direct vision. Throughout the procedure, the patient's blood pressure, pulse, and oxygen saturations were monitored continuously. The Endoscope was introduced through the anus and advanced to the sigmoid colon. The flexible sigmoidoscopy was accomplished without difficulty. The patient tolerated the procedure well. The quality of the bowel preparation was poor because he did not prep for the prpcedure. Scope In: 4:31:59 PM Scope Out: 4:39:06 PM Total Procedure Duration Time 0 hours 7 minutes 7 seconds Findings: The perianal and digital rectal examinations were normal. Multiple small and large-mouthed diverticula were found in the recto-sigmoid colon, sigmoid colon and descending colon. Biopsies were taken with a cold forceps for histology. Verification of patient identification for the specimen was done. Estimated blood loss was minimal. The exam was otherwise without abnormality. Impression: - Diverticulosis in the recto-sigmoid colon, in the sigmoid colon and in the descending colon. Biopsied. - The examination was otherwise normal. Recommendation: - Use original regular Metamucil one tablespoon PO daily. Procedure Code(s): --- Professional --- 13213, Sigmoidoscopy, flexible; with biopsy, single or multiple CPT copyright 2021 [employer]. All rights reserved. The codes documented in this report are preliminary and upon retail product demo specialist review may be revised to meet current compliance requirements. Jose Cheng DO 09/14/2025 5:01:52 PM This report has been signed electronically. Number of Addenda: 0 Note Initiated On: 09/14/2025 3:53 PM
--- NOTE | 2025-09-14 18:19 | POSTOPAN2_ITS ---
Anesthesia Postop Eval I Sum Postop Eval Completion status Anesthesia document: Postop Eval 1 completed: Yes Anesthesia Postop Eval I Summary Anesthesia Postop Eval I Summary: Anesthesia Postop Eval I: Assessment Summary Airway patent Yes 09/14/25 16:52 DSP [email or web address] Spontaneous unlabored Yes 09/14/25 16:52 DSP [email or web address] respirations Mental status nausea No 09/14/25 16:52 DSP [email or web address] Vomiting No 09/14/25 16:52 DSP [email or web address] Anesthesia Postop Eval I: Fluid Summary Crystalloid volume administer 300 09/14/25 16:52 DSP [email or web address] (ml) Colloids volume administered ( ml) Blood Product volume administered (ml) Total IV fluid infused 300 09/14/25 16:52 DSP [email or web address] Anesthesia Postop Eval I: Summary Notes Anesthesia Complication No 09/14/25 16:52 DSP [email or web address].CSIR Anesthesia Complication Comment: Post-operative progress note Anesthesia: Postop Eval II Evaluation Mental status: Awake and Calm Pain Level: 0 nausea: No Vomiting: No Complications Anesthesia Complication: No
--- NOTE | 2025-09-14 18:19 | PCM.POSTANE2 ---
Anesthesia Postop Eval I Sum Postop Eval Completion status Anesthesia document: Postop Eval 1 completed: Yes Anesthesia Postop Eval I Summary Anesthesia Postop Eval I Summary: Anesthesia Postop Eval I: Assessment Summary Airway patent Yes 09/14/25 16:52 MONUMENT [email or web address] Spontaneous unlabored Yes 09/14/25 16:52 MONUMENT [email or web address] respirations Mental status nausea No 09/14/25 16:52 MONUMENT [email or web address] Vomiting No 09/14/25 16:52 MONUMENT [email or web address] Anesthesia Postop Eval I: Fluid Summary Crystalloid volume administer 300 09/14/25 16:52 MONUMENT [email or web address] (ml) Colloids volume administered ( ml) Blood Product volume administered (ml) Total IV fluid infused 300 09/14/25 16:52 MONUMENT [email or web address] Anesthesia Postop Eval I: Summary Notes Anesthesia Complication No 09/14/25 16:52 MONUMENT [email or web address] Anesthesia Complication Comment: Post-operative progress note Anesthesia: Postop Eval II Evaluation Mental status: Awake and Calm Pain Level: 0 nausea: No Vomiting: No Complications Anesthesia Complication: No
[2025-09-15] VITALS (7 sets, daily range): BP systolic 125–145; BP diastolic 71–86; PULSE 73–85; RESP 18–20; TEMP 36.2–36.6; O2SAT 78–99
[2025-09-15] MEDS: 0.9% Saline Lock 10 ML Syringe IV (03:03)
[2025-09-15] MEDS: 0.9% Normal Saline (1000mL) 1,000 ML 75 ML IV (03:13)
[2025-09-15] MEDS: Piperacil/Tazobactam 3.375 GM in 0.9% Normal Saline (50mL MB+) 50 ML IV (05:28)
[2025-09-15 07:01] LABS: Hematocrit 30.6 % (40-54); Hemoglobin 9.8 g/dL (13.0-16.5); Immature Granulocytes Count 0.020 X10^3/uL (0.0-0.0); Mean Corp Hgb Conc 32.0 g/dL (32-36); Mean Corpuscular Volume 93.3 fL (80-94); Mean Platelet Vol. 10.2 fl (6.2-12.0); NRBC Flagged by Analyzer 0 % (0-5); Platelet Count 315 K/mm3 (150-450); RBC Distribution Width CV 14.7 % (11.6-14.6); RBC Distribution Width SD 50.2 fl (35.1-43.9); Red Blood Count 3.28 M/mm3 (4.6-6.2); White Blood Count 6.6 K/mm3 (4.4-11.0)
[2025-09-15 07:48] LABS: Anion Gap 8 (5-15); BUN 6 mg/dL (4-19); BUN/Creat Ratio 9.6 RATIO (10-20); Calcium,Total 8.1 mg/dL (7.6-11.0); Carbon Dioxide 27.0 mmol/L (21.0-32.0); Chloride 105 mmol/L (98-108); Estimated Creatinine Clearance 81.29 ml/min (50-250); Glucose 87 mg/dL (70-99); Potassium 3.5 mmol/L (3.3-5.1)
--- NOTE | 2025-09-15 10:45 | PN.SURG_ITS ---
Subjective Subjective Patient evaluated resting comfortably in bed. He notes taking Tylenol 3 hours prior to our visit which has helped with his pain. He denies any nausea, vomiting. He states he has been passing very little gas. He denies any bowel movements since admission. Objective Data Objective Data Vital Signs: Vital Signs Temp Pulse Resp BP Pulse Ox O2 Del Method O2 Flow Rate 97.6 F L 73 18 125/73 H 96 Nasal Cannula 2 09/15/25 08:28 09/15/25 08:28 09/15/25 08:28 09/15/25 08:28 09/15/25 09:25 09/15/25 09:25 09/15/25 09:25 Oxygen Flow Rate (L/min) 2 Oxygen Delivery Method Nasal Cannula Weight: 151 lb 12.789 oz Body Mass Index (BMI) 20.5 Intake & Output: Intake and Output for Last 24 Hours 09/13/25 09/14/25 09/15/25 23:59 23:59 23:59 Intake Total 2797.50 / 2797.50 3030.25 / 3030.25 722.08 / 722.08 Balance 2797.50 / 2797.50 3030.25 / 3030.25 722.08 / 722.08 Lab / Micro Data 09/15/25 06:25 09/15/25 06:25 Labs: Laboratory Results - last 24 hr 09/15/25 06:25: WBC 6.6, RBC 3.28 L, Hgb 9.8 L, Hct 30.6 L, MCV 93.3, MCH 29.9, MCHC 32.0, RDW Std Deviation 50.2 H, RDW Coeff of Isela 14.7 H, Plt Count 315, MPV 10.2, Immature Gran % (Auto) 0.300, Neut % (Auto) 69.4, Lymph % (Auto) 13.4 L, M jaspreet % (Auto) 10.1 H, Eos % (Auto) 6.2 H, Baso % (Auto) 0.6, Absolute Neuts (auto) 4.6, Absolute Lymphs (auto) 0.89, Nucleated RBC % 0, Sodium 139, Potassium 3.5, Chloride 105, Carbon Dioxide 27.0, Anion Gap 8, BUN 6, Creatinine 0.60 L, Estim Creat Clear Calc 81.29, Est GFR (MDRD) Non-Af 103, BUN/Creatinine Ratio 9.6 L, Glucose 87, Calcium 8.1 Micro: Microbiology 09/08/25 09:32 Blood Culture (Wb) - Anticubital Left Blood Culture - Final No growth in 5 days. 09/08/25 09:37 Blood Culture (Wb) - Anticubital Right Blood Culture - Final No growth in 5 days. 09/08/25 10:48 Urine, Clean Catch Urine Culture - Final Culture exhibits no growth. Physical Exam GI GI Narrative: Abdomen- soft, very slight tenderness in the low pelvic region. No guarding. Assessment & Plan Assessment/Plan (1) Diverticulitis of intestine with abscess: QUALIFIERS: Diverticulitis site: large intestine Diverticulitis bleeding: without bleeding Qualified Code(s): K57.20 - Diverticulitis of large intestine with perforation and abscess without bleeding PLAN: I am following this patient in conjunction with Dr. Walter. He has independently evaluated this patient. Labs reviewed S/p sigmoidoscopy yesterday by Friend showed diverticulosis, biopsied otherwise normal exam Patient on regular diet. Will switch to transitional for lower fiber diet. Stop IV fluids Switch to oral antibiotics to see if patient will tolerate. Recommend total of 14 days worth of antibiotics (7 days more) If tolerated, okay for discharge to follow-up with Dr. Wisdom within 2 weeks Patient will remain on a low fiber diet, soft food diet He will need a repeat CT scan of ab/pel at some point and will be determined at follow-up with Dr. Wisdom Patient will also need a colonoscopy likely at 6 weeks from acute flare up Pain control with Tylenol as needed From surgery standpoint, patient would be able to be discharged later today Charges/Coding Visit Charges Inpatient E&M: 13748 Subs Hosp L2
[2025-09-15] MEDS: FLUTICASONE/UMECLIDIN/VILANTER 1 EACH BLST.W.DEV INHALATION (11:38)
--- NOTE | 2025-09-15 15:13 | CASEMGMT ---
Pt qualified for 4L of O2 with exertion. JOSE CM into pt room, pt sitting up in bed and girlfriend came in to visit. Pt agreeable to discussing with girlfriend present. Pt states he has his inogen at home and does not want to be set up with O2. He states he knows when he needs it and when he doesn't. Discussed pt obtaining a pox. Pt states he knows by how his body feels. Attempted to discuss effects of hypoxia and how it effects the body, pt was not interested. Pt girlfriend attempted to ask a question and pt stated he will do the talking. Pt states he will continue with his inogen and will obtain a pox. He is aware that oxygen level should be 89 or above for RA. Updated hospitalist that pt does not want to be set up with home oxygen and wants to continue to use inogen.
--- NOTE | 2025-09-15 16:04 | DCINST_ITS ---
Discharge Instructions DC O2, CPAP, BIPAP needs Home O2 Discharge instructions: No Dressing / Incision Discharge Activity: Return to Normal Activity Dressing / Incision Call your doctor if you observe: Fever of 101 or Higher, Shortness of breath, Dizziness, Fainting spells, Swelling in the ankles, Chest pain and Increased palpitations (irregular heartbeat) Follow Up Care Test Results: Test results from this visit will be discussed in further detail at your follow- up appointment, if applicable. Discharge Plan Admission Admit Date/Time: 09/08/25 13:23 Attending Provider: Parmjit Mcmillan Primary Care Provider: Kasie Pearce Consulting Providers: Michelle Wisdom; Friend,Jose Instructions Additional Instructions / Restrictions: You will need to follow-up with Dr. Wisdom within 2 weeks. Please call [phone], option #2 to schedule an appointment. You will remain on the below diet until your follow-up with Dr. Wisdom. Dr. Wisdom will discuss any follow-up imaging or procedures at your follow-up appointment What are low-fiber foods? If your doctor tells you to follow a low-fiber diet, here are low-fiber foods you can eat and higher-fiber foods you should avoid. Remember to always choose foods that you would normally eat. Do not try any foods that caused you discomfort or allergic reactions in the past. If you are on a ?low-residue diet,? your food choices are even more restricted than those listed below. Talk with your cancer care team or dietitian if you have questions about certain foods or amounts. Meat, fish, poultry, and protein Eat: Tender cuts of meat Ground meat Tofu Fish and shellfish Smooth peanut butter Eggs Bake, broil, or poach meats, and use mild seasonings. Try preparing meats as stews, roasts, meatloaves, casseroles, sandwiches, and soups using ingredients on the approved lists. Scramble, poach, or boil eggs; or make omelets, souffl?s, custard, puddings, and casseroles, using ingredients noted below. You might want to ask your doctor, nurse, or dietitian about other foods may be OK for you to eat, and find out when you can go back to your normal diet. Avoid: All beans, nuts, peas, lentils, and legumes Processed meats, hot dogs, sausage, and cold cuts Tough meats with gristle Dairy: Milk and cheese Eat: Only in small to medium amounts and only if they don?t cause problems for you Milk, chocolate milk, buttermilk, and milk drinks Yogurt without seeds or granola Sour cream Cheese Cottage cheese Custard or pudding Ice cream or frozen desserts (without nuts) Cream sauces, soups, and casseroles You can use these items in desserts, snacks, or breads. Bread, cereals, and grains Eat: White breads, waffles, [place] toast, plain white rolls, or white bread toast Pretzels Plain pasta or noodles White rice Crackers, zwieback, kristy, and matzoh (no cracked wheat or whole grains) Cereals without whole grains, added fiber, seeds, raisins, or other dried fruit Use white flour for baking and making sauces. Grains, such as white rice, Cream of Wheat, or grits, should be well-cooked. Include the above grains in casseroles, dumplings, souffl?s, cheese strata, kuge ls, and pudding. Avoid any food that contains: Brown or wild rice Whole grains, cracked grains, or whole wheat products Kasha (buckwheat) Cornbread or cornmeal Shiv crackers Bran Wheat germ Nuts Granola Coconut Dried fruit Seeds Vegetables and potatoes Eat: Tender, well-cooked fresh or canned vegetables without seeds, stems, or skins Cooked sweet or white potatoes without skins Strained vegetable juices without pulp or spices You can also eat these with cream sauces, or in soups, souffl?s, kugels, and casseroles. Avoid: All raw or steamed vegetables All types of beans Potatoes with skin Peas [place] Cabbage, broccoli, cauliflower, [place] sprouts, and greens Sauerkraut Onions Fruits and desserts Eat: Soft canned or cooked fruit without seeds or skins (small amounts) Small amounts of well-ripened banana Strained or clear juices Small amounts of soft cantaloupe or honeydew melon Cookies and other desserts without whole grains, dried fruit, berries, nuts, or coconut Sherbet and popsicles Serving suggestions include gelatins, milk shakes, frozen desserts, puddings, tapioca, cakes, and sauces. Avoid: All raw or dried fruits Berries Prune juice, prunes, and raisins Other foods Eat: Mayonnaise and mild salad dressings Margarine, butter, cream, and oils in small amounts Plain gravies Plain bouillon and broth Ketchup and mild mustard Spices, cooked herbs, and salt Sugar, honey, and syrup Clear jellies Hard candy and marshmallows Plain chocolate Avoid: Marmalade Pickles, olives, relish, and horseradish Popcorn Potato chips Liquids Keep in mind that low-fiber foods cause fewer bowel movements and smaller stools. You may need to drink extra fluids to help prevent constipation while you are on a low-fiber diet. Drink plenty of water unless your doctor tells you otherwise, and use juices and milk as noted above. Discharge Orders/Prescriptions Prescriptions: New amoxicillin-pot clavulanate 875-125 mg Tablet 1 tab PO BID 14 Days Qty: 28 0RF Continued Trelegy Ellipta 100-62.5-25 mcg blister with device 1 inh INHALATION QDAY Qty: 60 11RF Rx Instructions: administer at approximately the same time(s) each day albuterol sulfate [Ventolin HFA] 90 mcg/actuation HFA aerosol inhaler 2 puff INHALATION Q4H PRN (Reason: shortness of breath or wheezing) Qty: 18 6RF Referrals / Follow Up: Kasie Pearce MD [Primary Care Provider, Family Practice] - Within 1 Week Michelle Wisdom MD [Med Staff - Active Staff, General Surgery] - Within 2 Weeks Disposition Disposition (needs filled in before D/C Order can be placed): Home, Self Care
--- NOTE | 2025-09-15 16:06 | PCM.DC.SUM ---
Providers Date of Admission: 09/08/25 Primary Care Physician: Kasie Pearce MD Consultations 09/08/25 15:02 Consult: General Surgery Routine Consulting Provider: Michelle Wisdom Reason for Consult: Diverticulitis with abscess EMERGENT Consult: No MD Notified: Yes Date Notified: 09/08/25 Time Notified: 13:28 Method of Notification: ED Physician Initiated 09/14/25 07:49 Consult: Gastroenterology Routine Consulting Provider: Jose Cheng Reason for Consult: ? flex sig for questionable mass EMERGENT Consult: No Notified: Yes Date Notified: 09/14/25 Time Notified: 07:49 Method of Notification: Text Reason For Visit: DIVERTICULITIS Diagnosis Discharge Diagnosis (1) Diverticulitis of intestine with abscess: Status: Acute Code(s): K57.80 - Diverticulitis of intestine, part unspecified, with perforation and abscess without bleeding Qualifiers: Diverticulitis site: large intestine Diverticulitis bleeding: without bleeding Qualified Code(s): K57.20 - Diverticulitis of large intestine with perforation and abscess without bleeding Medications at Discharge Home Medications fluticasone fur. 100 mcg-umeclid 62.5 mcg-vilant 25 mcg inhalat.powder (Trelegy Ellipta) 1 inh inhalation QDAY #60 ea 05/26/25 albuterol sulfate 90 mcg/actuation aerosol inhaler (Ventolin HFA) 2 puff inhalation Q4H PRN shortness of breath or wheezing #18 grams 08/24/25 amoxicillin 875 mg-potassium clavulanate 125 mg tablet 1 tab PO BID 14 days #28 tabs 09/15/25 Hospital Course Operations None Procedures - (Flexible sigmoidoscopy) Summary of Care Provided Minutes Spent on Discharge: 34 Hospital Course: Per HPI: AZIZA RODRIGUEZ, is a 70 M who presents to the hospital for left lower quadrant abdominal pain that have been going on for the last several days. Initially he thought this was bladder pain or a bladder infection so he went to a urologist who sent him to the ER. CT scan of his abdomen pelvis demonstrates diverticulitis with contained abscess as well as findings concerning for possible colonic mass as he is never had a colonoscopy before. He is afebrile here in the emergency room and was started on Zosyn. White count is 14.8 and he is tachypneic and tachycardic consistent with sepsis based on Medicare criteria. He did receive 2 L of fluid in the emergency room and general surgery was consulted from the ER. Currently no plans for emergent surgery Hospital Course: 1. Sepsis secondary to diverticulitis with abscess?70-year-old male presents to the hospital with abdominal pain, CT scan demonstrates significant inflammation with abscess formation. He was started on Zosyn and has had improvement in his symptoms however there was concern for possible mass in his rectosigmoid colon instead of simply inflammation from diverticulitis so gastroenterology was consulted and performed flexible sigmoidoscopy with biopsy of the area, and their evaluation did not appear to be cancerous but biopsies are pending. He did have some return of bowel function with advancement in his diet today with flatus and he was requesting discharge home. Since he did have return of bowel function surgery was okay with discharge and prescribed Augmentin for 14 days. He will need to follow-up with general surgery in 2 weeks to evaluate for resolution of symptoms as well as to obtain pathology results. I discussed with him the plan for discharge and he expressed understanding of the risks and benefits of going home and would like to go home today. 2. COPD?he does have an oxygen requirement however he does not want to set up any oxygen as he bought his own oxygen concentrator at home and will just use that. Will continue with his home inhalers and recommend outpatient follow-up with his marketing services coordinator as well as his PCP. Physical Exam Narrative General: Alert, Oriented x3, Cooperative, No apparent distress HEENT: Atraumatic, PERRLA, EOMI, Normocephalic Oral: Moist Mucosa Neck: Supple, No JVD Lungs: Diminished, Normal air movement, No rhonchi, No wheeze, No rales Cardiovascular: Regular rate, Regular Rhythm, Normal S1, Normal S2, No murmurs Abdomen: Soft, nontender, Non-Distended, No Hepato-splenomegaly Extremities: No edema, Capillary Refill Less than 3 Seconds Skin: No rashes, No breakdown Musculoskeletal: No Tenderness to Palpation of Joints or Extremities Neurological: No focal neurological deficits, moves all extremities Psych/Mental Status: Normal Affect, Appropriate Weight / BMI Weight Weight: 151 lb 12.789 oz Body Mass Index (BMI) 20.5 ABG / Lab / Microbiology Data 09/15/25 06:25 09/15/25 06:25 Laboratory: Laboratory Results - last 24 hr 09/15/25 06:25: WBC 6.6, RBC 3.28 L, Hgb 9.8 L, Hct 30.6 L, MCV 93.3, MCH 29.9, MCHC 32.0, RDW Std Deviation 50.2 H, RDW Coeff of Isela 14.7 H, Plt Count 315, MPV 10.2, Immature Gran % (Auto) 0.300, Neut % (Auto) 69.4, Lymph % (Auto) 13.4 L, [place] % (Auto) 10.1 H, Eos % (Auto) 6.2 H, Baso % (Auto) 0.6, Absolute Neuts (auto) 4.6, Absolute Lymphs (auto) 0.89, Nucleated RBC % 0, Sodium 139, Potassium 3.5, Chloride 105, Carbon Dioxide 27.0, Anion Gap 8, BUN 6, Creatinine 0.60 L, Estim Creat Clear Calc 81.29, Est GFR (MDRD) Non-Af 103, BUN/Creatinine Ratio 9.6 L, Glucose 87, Calcium 8.1 Microbiology: Microbiology 09/08/25 09:32 Blood Culture (Wb) - Anticubital Left Blood Culture - Final No growth in 5 days. 09/08/25 09:37 Blood Culture (Wb) - Anticubital Right Blood Culture - Final No growth in 5 days. 09/08/25 10:48 Urine, Clean Catch Urine Culture - Final Culture exhibits no growth. D/C Instructions Call your doctor if you observe: Fever of 101 or Higher, Shortness of breath, Dizziness, Fainting spells, Swelling in the ankles, Chest pain and Increased palpitations (irregular heartbeat) DC O2, CPAP, BIPAP Needs Home O2 Discharge instructions: No Meaningful Use Info Meaningful Use Meaningful Use Diagnoses (Choose all that apply): None applicable Discharge Plan Admission Admit Date/Time: 09/08/25 13:23 Attending Provider: Parmjit Mcmillan Primary Care Provider: Kasie Pearce Consulting Providers: Michelle Wisdom; Friend,Jose Instructions Additional Instructions / Restrictions: You will need to follow-up with Dr. Wisdom within 2 weeks. Please call [phone], option #2 to schedule an appointment. You will remain on the below diet until your follow-up with Dr. Wisdom. Dr. Wisdom will discuss any follow-up imaging or procedures at your follow-up appointment What are low-fiber foods? If your doctor tells you to follow a low-fiber diet, here are low-fiber foods you can eat and higher-fiber foods you should avoid. Remember to always choose foods that you would normally eat. Do not try any foods that caused you discomfort or allergic reactions in the past. If you are on a ?low-residue diet,? your food choices are even more restricted than those listed below. Talk with your cancer care team or dietitian if you have questions about certain foods or amounts. Meat, fish, poultry, and protein Eat: Tender cuts of meat Ground meat Tofu Fish and shellfish Smooth peanut butter Eggs Bake, broil, or poach meats, and use mild seasonings. Try preparing meats as stews, roasts, meatloaves, casseroles, sandwiches, and soups using ingredients on the approved lists. Scramble, poach, or boil eggs; or make omelets, souffl?s, custard, puddings, and casseroles, using ingredients noted below. You might want to ask your doctor, nurse, or dietitian about other foods may be OK for you to eat, and find out when you can go back to your normal diet. Avoid: All beans, nuts, peas, lentils, and legumes Processed meats, hot dogs, sausage, and cold cuts Tough meats with gristle Dairy: Milk and cheese Eat: Only in small to medium amounts and only if they don?t cause problems for you Milk, chocolate milk, buttermilk, and milk drinks Yogurt without seeds or granola Sour cream Cheese Cottage cheese Custard or pudding Ice cream or frozen desserts (without nuts) Cream sauces, soups, and casseroles You can use these items in desserts, snacks, or breads. Bread, cereals, and grains Eat: White breads, waffles, [place]hala toast, plain white rolls, or white bread toast Pretzels Plain pasta or noodles White rice Crackers, zwieback, kristy, and matzoh (no cracked wheat or whole grains) Cereals without whole grains, added fiber, seeds, raisins, or other dried fruit Use white flour for baking and making sauces. Grains, such as white rice, Cream of Wheat, or grits, should be well-cooked. Include the above grains in casseroles, dumplings, souffl?s, cheese strata, kugels, and pudding. Avoid any food that contains: Brown or wild rice Whole grains, cracked grains, or whole wheat products Kasha (buckwheat) Cornbread or cornmeal Shiv crackers Bran Wheat germ Nuts Granola Coconut Dried fruit Seeds Vegetables and potatoes Eat: Tender, well-cooked fresh or canned vegetables without seeds, stems, or skins Cooked sweet or white potatoes without skins Strained vegetable juices without pulp or spices You can also eat these with cream sauces, or in soups, souffl?s, kugels, and casseroles. Avoid: All raw or steamed vegetables All types of beans Potatoes with skin Peas [place] Cabbage, broccoli, cauliflower, [place] sprouts, and greens Sauerkraut Onions Fruits and desserts Eat: Soft canned or cooked fruit without seeds or skins (small amounts) Small amounts of well-ripened banana Strained or clear juices Small amounts of soft cantaloupe or honeydew melon Cookies and other desserts without whole grains, dried fruit, berries, nuts, or coconut Sherbet and popsicles Serving suggestions include gelatins, milk shakes, frozen desserts, puddings, tapioca, cakes, and sauces. Avoid: All raw or dried fruits Berries Prune juice, prunes, and raisins Other foods Eat: Mayonnaise and mild salad dressings Margarine, butter, cream, and oils in small amounts Plain gravies Plain bouillon and broth Ketchup and mild mustard Spices, cooked herbs, and salt Sugar, honey, and syrup Clear jellies Hard candy and marshmallows Plain chocolate Avoid: Marmalade Pickles, olives, relish, and horseradish Popcorn Potato chips Liquids Keep in mind that low-fiber foods cause fewer bowel movements and smaller stools. You may need to drink extra fluids to help prevent constipation while you are on a low-fiber diet. Drink plenty of water unless your doctor tells you otherwise, and use juices and milk as noted above. Discharge Orders/Prescriptions Prescriptions: New amoxicillin-pot clavulanate 875-125 mg Tablet 1 tab PO BID 14 Days Qty: 28 0RF Continued Trelegy Ellipta 100-62.5-25 mcg blister with device 1 inh INHALATION QDAY Qty: 60 11RF Rx Instructions: administer at approximately the same time(s) each day albuterol sulfate [Ventolin HFA] 90 mcg/actuation HFA aerosol inhaler 2 puff INHALATION Q4H PRN (Reason: shortness of breath or wheezing) Qty: 18 6RF Referrals / Follow Up: Kasie Pearce MD [Primary Care Provider, Family Practice] - Within 1 Week Michelle Wisdom MD [Med Staff - Active Staff, General Surgery] - Within 2 Weeks Disposition Disposition (needs filled in before D/C Order can be placed): Home, Self Care Charges/Coding Visit Charges Inpatient E&M: 54600 Disch Hosp >30min
== END 2025-09-15 16:21 | disposition home or self-care (01) | DRG 872 ==
LOC: ED 13:41 → MS3 14:50
PROVIDERS: Internal Medicine Gastroenterology; Physician Assistant; Surgery; Admitting Provider Family Medicine; Emergency Provider Emergency Medicine; PCP Family Medicine; Visit Provider Family Medicine
PROC: 0DJD8ZZ Inspection of Lower Intestinal Tract, Via Natural or Artificial Opening Endoscopic (ICD-10-PCS; CPT 45330; principal; 2025-09-14 15:55)
DX: A41.9 Sepsis, unspecified organism (principal); K57.20 Diverticulitis of large intestine with perforation and abscess without bleeding; J44.9 Chronic obstructive pulmonary disease, unspecified; R63.4 Abnormal weight loss; F17.210 Nicotine dependence, cigarettes, uncomplicated; F17.220 Nicotine dependence, chewing tobacco, uncomplicated; Z79.51 Long term (current) use of inhaled steroids; Z68.20 Body mass index [BMI] 20.0-20.9, adult
CPT/HCPCS: 36415; 74176; 74177; 80048; 80053; 81001; 83605; 83690; 85025; 85610; 85730; 87040; 87086; 88305; 93005; 99285; 99406; Q9967; A4216; J2405

== ENCOUNTER → 2025-09-08 | Outpatient (CLI) | payer MEDICARE, SELFPAY ==
--- NOTE | 2025-09-08 08:34 | CT_ITS ---
PROCEDURE: ABDOMEN/PELVIS WITHOUT CONT 09/08/2025 REASON FOR EXAM: ABD PAIN Low back pain. Microscopic hematuria. Dark urine. TECHNIQUE: Procedure Code: [id number] Modality: CT Procedure: ABDOMEN/PELVIS WITHOUT CONT Noncontrast technique limits evaluation of the abdominal and pelvic viscera. Coronal and Sagittal reconstruction series were provided. One or more dose reduction techniques were used (e.g., Automated exposure control, adjustment of the mA and/or kV according to patient size, use of iterative reconstruction technique). RADIATION DOSE SUMMARY: CTDlvol: 6.3 mGy DLP: 283.21. MGycm COMPARISON: April 27, 2020. FINDINGS: Lung bases: Mild increased markings at the lung bases slightly more prominent on the left side suggestive of scarring. Liver: The liver is upper limits of normal. Gallbladder: The gallbladder is contracted. Spleen: Multiple calcified splenic granulomas. Pancreas: Normal size. No surrounding inflammation. Adrenals: Unremarkable. Kidneys: 4 mm nonobstructive calculus in the upper pole calyx of the right kidney. No evidence of hydronephrosis. No evidence of hydroureter. Bladder: Unremarkable The prostate shows evidence of central calcifications. It is not enlarged. Bowel: Colonic diverticulosis without diverticulitis. Fecal material is seen throughout the colon. Appendix: The appendix is not identified. There is no inflammatory process identified in the right lower quadrant to suggest appendicitis. Lymph nodes: Small benign-appearing left inguinal lymph nodes. Vasculature: Mild diffuse atherosclerotic calcifications are noted. Peritoneum / Retroperitoneum: Unremarkable Bones: Degenerative changes of the spine. Levoconvex scoliosis. Minimal anterior listhesis of L4 on L5. CT/Abdomen/Pelvis without Cont IMPRESSION: Nonobstructive calculus in the upper pole calyx of the right kidney with no jessie dence of hydronephrosis. Reading Location: [id number]
== END | disposition home or self-care (01) ==
LOC: CT 08:32
PROVIDERS: PCP Family Medicine; Referring Provider Urology; Visit Provider Urology
DX: R10.84 Generalized abdominal pain (principal); R31.21 Asymptomatic microscopic hematuria
CPT/HCPCS: 74176